=== PATIENT | male | born 1970 | race Caucasian/White ===

== ENCOUNTER 2019-12-15 17:12 | Emergency (ER) | payer BC, SELFPAY ==
[2019-12-15] VITALS (14 sets, daily range): BP systolic 124–147; BP diastolic 75–124; PULSE 89–107; RESP 16–37; TEMP 36.2; O2SAT 98–100
--- NOTE | 2019-12-15 17:15 | DI.CT_ITS ---
EXAM: CT HEAD CERVICAL SPINE WO CLINICAL HISTORY: fall off ladder. TECHNIQUE: Imaging Protocol: Axial computed tomography images with coronal and sagittal reformatted images were created and reviewed COMPARISON: No exams were available for comparison FINDINGS: There is dental artifact. CT Head: Ventricles and Extra axial spaces: Normal in size and morphology for the patient's age. Hemorrhage: None. Cerebral parenchyma: Normal. Midline shift: None. Brainstem/Cerebellum: Normal. Calvarium: Normal. Visualized Paranasal sinuses/Mastoids: Mucosal thickening is seen in the all of the paranasal sinuses bilaterally. No air fluid levels are present. The mastoid air cells are clear. Soft Tissues: Unremarkable. CT Cervical Spine: Bones: No acute fracture or subluxation. Soft Tissues: Unremarkable. Lung Apices: Clear. IMPRESSION: 1. No acute intracranial process. 2. No acute fracture or subluxation in the cervical spine. RADIATION DOSE DELIVERED: 1,630.99mGy.cm Total DLP DATA REPOSITORY: All CT scans at this facility are submitted to the National Radiology Data Registry (NRDR) Dose Index Registry (DIR) with the [employer] (ACR). RADIATION OPTIMIZATION: All CT scans at this facility use at least one of these dose optimization te chniques: automated exposure control; mA and/or kV adjustment per patient size (includes targeted exa ms where dose is matched to clinical indication); or iterative reconstruction.
--- NOTE | 2019-12-15 17:15 | DI.CT_ITS ---
EXAM: CT UPPER EXTREMITY RT WO CLINICAL HISTORY: pain s/p fall, open wound. TECHNIQUE: Imaging Protocol: Axial computed tomography images with coronal and sagittal reformatted images were created and reviewed. COMPARISON: No exams were available for comparison FINDINGS: Bones: There is a comminuted impacted fracture of the surgical neck of the right humerus. The fract ure extends to involve the inferior aspect of the humeral head and the greater tuberosity. The humer al head is seated within the glenoid fossa. There is also a comminuted intra-articular fracture of t he distal humerus. Air is seen within the elbow joint. Subcutaneous air and soft tissue swelling is seen around the elbow. There may also be some deformity of the radial head and a nondisplaced fract ure should be considered. No other fracture is appreciated. No lytic or sclerotic lesions are ident ified. Soft Tissues: Soft tissue swelling around the shoulder and elbow. IMPRESSION: 1. Comminuted impacted fracture of the surgical neck of the right humerus with extension into the hum eral head and the greater tuberosity. 2. Comminuted distal humeral fracture with intra-articular extension. There is air seen in the subcu taneous tissues around the elbow and within the elbow joint. 3. Question of a nondisplaced radial head fracture. RADIATION DOSE DELIVERED: 182.89mGy.cm Total DLP 182.89mGy.cm Total DLP DATA REPOSITORY: All CT scans at this facility are submitted to the National Radiology Data Registry (NRDR) Dose Index Registry (DIR) with the [employer] (ACR). RADIATION OPTIMIZATION: All CT scans at this facility use at least one of these dose optimization te chniques: automated exposure control; mA and/or kV adjustment per patient size (includes targeted exa ms where dose is matched to clinical indication); or iterative reconstruction.
--- NOTE | 2019-12-15 17:15 | DI.CT_ITS ---
EXAM: CT CHEST/ABD/PEL W CLINICAL HISTORY: TECHNIQUE: Imaging Protocol: Axial computed tomography images with coronal and sagittal reformatted images were created and reviewed CONTRAST MATERIAL: Intravenous: Omnipaque 350 Contrast volume:100 mL Oral: No COMPARISON: CT CT THORACIC LUMBAR SPINE REC from 12/15/2019 FINDINGS: The examination is limited due to patient motion artifact. CHEST: Tracheobronchial tree: Patent where visualized. Mediastinum and Giselle: No dominant adenopathy or fluid collection. Pulmonary parenchyma: No consolidation or dominant measurable mass. No architectural distortion. Ther e is a 2 mm noncalcified pulmonary nodule in the right lower lobe laterally. Pleura: No effusion or pneumothorax. Heart: The heart is not dilated. Mild coronary artery calcification. No pericardial effusion. Aorta: Thoracic aorta non-dilated. Lymph nodes: Within normal limits. Bones:There is a comminuted impacted fracture of the proximal right humerus. Please refer to the CT scan of the upper extremity for complete details. Soft tissues: Unremarkable. ABDOMEN: Liver: Normal density. No measurable mass. Portal, Superior Mesenteric, and Splenic Veins: Unremarkable. Gallbladder and Biliary Tract: No radiodense calculus or dilation. Pancreas: Normal density, no abnormal calcifications or inflammatory process. Spleen: Normal. Adrenals: No masses seen. Kidneys: Normal size, contour and axis. Nonobstructing 2 mm stone in the superior pole of the left ki dney. No masses seen. Abdominal Aorta: Abdominal portion non-dilated. Mild atherosclerosis. Bowel: No obstruction or bowel wall thickening. Appendix is unremarkable. There is a small amount of fluid seen within the small bowel. Peritoneal Cavity: No ascites, collection or mesenteric inflammatory response. Lymph Nodes: Within normal limits. Bones: There is a nondisplaced fracture of the lateral aspect of the right superior pubic ramus. The re is a nondisplaced fracture involving the right sacral ala with extension into the right sacroiliac joint. There is a minimally displaced fracture involving the right L5 transverse process Soft Tissues: Unremarkable. PELVIS: Bladder: Symmetric distention, no gross wall thickening. Reproductive Organs: Unremarkable as visualized. Lymph Nodes: Within normal limits. Bones: Please see above. IMPRESSION: 1. Nondisplaced fracture involving the lateral aspect of the right superior pubic ramus. Nondisplace d fracture involving the right sacral ala with extension into the right SI joint. Minimally displace d fracture of the right L5 transverse process. 2. Small amount of fluid within the small bowel which can be a normal variant. Mild developing small -bowel ileus may be present. 3. Comminuted impacted fracture of the surgical neck of right humerus. 4. No acute pulmonary process. RADIATION DOSE DELIVERED: 1,646.06mGy.cm Total DLP DATA REPOSITORY: All CT scans at this facility are submitted to the National Radiology Data Registry (NRDR) Dose Index Registry (DIR) with the [employer] (ACR). RADIATION OPTIMIZATION: All CT scans at this facility use at least one of these dose optimization te chniques: automated exposure control; mA and/or kV adjustment per patient size (includes targeted exa ms where dose is matched to clinical indication); or iterative reconstruction.
[2019-12-15] MEDS: fentaNYL 100 MCG/2 ML VIAL (17:20)
--- NOTE | 2019-12-15 17:22 | ED.GENADUL_ITS ---
Discharge Plan Disposition Patient Disposition: [facility] Condition: Serious Discharge Details Clinical Impression: Open fracture of right elbow, Blunt head trauma, Blunt trauma of multiple sites of trunk Primary Care Provider: Michelle Layton ED Provider: Eduin Solorio Home Meds and New Rx's Prescriptions: No Action atorvastatin 40 mg Tablet 40 mg PO QHS RF: 0 lisinopril 20 mg Tablet 20 mg PO DAILY RF: 0 metoprolol succinate 25 mg Capsule,Sprinkle,Er 24hr 25 mg PO DAILY RF: 0 Medical Decision Making 49 yo male with hx of htn comes in with chief complaint of right elbow pain s/p fall 8-10 feet off ladder, denies loc. Biggest complaint of pain is in the right elbow with swelling and limited rom and has a 1cm laceration over the olecranon, suspect he has an open fracture. He has soft abdomen with minimal tenderness in mid left abdomen and left lateral chest tenderness without palpable defects. [facility] mechanism will obtain ct of the head, c spine, chest/abd/pelvis and also given pain with any rom of the elbow CT of the elbow and monitor. No midline spine tenderness imaging on my read shows elbow fx and proximal humerus fx. Awaiting vrad read. He still has intact distal sensation and pulsese, still has quite a bit of pain, muscles feel soft but concern for possible compartment syndrome given the pain. Spoke with Dr. bedoya who doesn't feel this can be managed here and requires tertiary care ct confirms proximal humerus, elbow fx, l5 and sacral ala and ?small bowel injury but no tenderness presently. Patient still in pain in elbow but intactneurovascular exam Spoke with [facility] Dr. Dye who accepts for transfer to trauma service. Pt remains HD stable Differential Diagnosis Differential Diagnosis: fracture, tbi, c spine injury Imaging Data Radiologic Study: Attestation: I personally reviewed and interpreted this imaging study as follows: Imaging: CT Scan Radiologist's impression: negative ct head and c spine Radiologic Study #2: Attestation: I personally reviewed and interpreted this imaging study as follows: Imaging: CT Scan Radiologist's impression: IMPRESSION: 1. There is a slightly comminuted fracture of the proximal surgical neck of the right humerus. 2. No CT evidence of acute vascular or visceral injury in the chest or upper abdomen. Both lungs are well-aerated with no pneumothorax. ADEN HOLLIDAY Preliminary Radiology Report Page 2 of 3 3. Mild chronic degenerative vertebral body endplate osteophytic disease is seen in the mid to lower thoracic spine. IMPRESSION: 1. There are acute fractures of the right transverse process of L5 and the right sacral ala present, seen on images 89 through 101 of series 4. 2. There is a moderate amount of fluid present within the small bowel, which can be a normal variant finding although a mild developing posttraumatic small-bowel ileus may be present. ADEN HOLLIDAY Preliminary Radiology Report [employer] (QA) DISCREPANCY? If there is a discrepancy between the preliminary and final interpretation, please notify [email or web address] via [email or web address]. If you do not have access to our QA portal, call our QA team at [phone] CONFIDENTIALITY STATEMENT This report is intended only for the use of the referring physician, and only in accordance with law, If you received this in error, call [phone] Page 3 [address] evidence of acute vascular or visceral injury in the abdomen or pelvis Lab Data Lab results reviewed: Yes I reviewed the patient's lab results. HPI General Mode of arrival: EMS . Date/Time Provider Initiated Documentation: 12/15/19 17:19 . Limitations to Documentation: no limitations . Information obtained by: patient . History of Present Illness 49 year old M presents to the emergency department with the chief complaint of fall off ladder right elbow pain, No relieving factors improve symptom(s), No exacerbating factors reported . Patient did receive the following treatments prior to arrival, none Related Data Home Medications Medication Instructions Recorded Confirmed atorvastatin 40 mg PO QHS 12/15/19 12/15/19 lisinopril 20 mg PO DAILY 12/15/19 12/15/19 metoprolol succinate 25 mg PO DAILY 12/15/19 12/15/19 Allergies Allergy/AdvReac Type Severity Reaction Status Date / Time No Known Allergies Allergy Unverified 12/15/19 17:15 General Stated Complaint: Trauma PRITESH: 2 Review of Systems All systems reviewed & are unremarkable except as noted in HPI and below Constitutional Constitutional: Denies chills, Denies fever(s) and Denies weakness Cardiovascular Cardiovascular: Denies dyspnea Respiratory Respiratory: Denies cough and Denies dyspnea Gastrointestinal Gastrointestinal: Denies nausea and Denies vomiting Musculoskeletal Musculoskeletal: Denies joint swelling Neurologic Neurologic: Denies weakness Psychiatric Psychiatric: Denies depression PFSH Social History Smoking/Tobacco Use Status: Former Tobacco Use Smoking risk assessment performed?: Yes Alcohol Intake: current Alcohol Intake frequency: a few times a week Alcohol type: hard liquor Drug use: Never Substance use type: does not use Do you feel safe at home: Yes Do you feel safe in your relationship?: Yes Exam Const General: other (in pain) Orientation: alert HENMT Head: normal to inspection Ears: external ears normal General nose exam: external nose normal Mouth: moist mucous membranes Eyes General: appearance normal, both eyes and all related structures Neck Neck: normal visual inspection Resp Effort & Inspection: normal respiratory effort and able to speak in complete sentences Cardio Rate: regular rate Skin General skin exam: no rashes or lesions noted Neuro General: patient alert and patient oriented x3 Extrem General: capillary refill normal Psych Mental Status: mental status grossly normal Course Vital Signs Vital signs: Vital Signs Temperature 36.2 C L 12/15/19 17:15 Pulse 96 H 12/15/19 17:15 Respiratory Rate 37 H 12/15/19 17:15 Blood Pressure 140/91 H 12/15/19 17:15 Pulse Oximetry 100 12/15/19 17:15 Temperature 36.2 C L 12/15/19 17:15 Temperature Source Temporal Artery Scan 12/15/19 17:15 Pulse 96 H 12/15/19 17:15 Respiratory Rate 37 H 12/15/19 17:15 Blood Pressure 140/91 H 12/15/19 17:15 Blood Pressure Position Supine 12/15/19 17:15 Pulse Oximetry 100 12/15/19 17:15 Oxygen Delivery Method Room Air 12/15/19 17:15 Oxygen Flow Rate 0 12/15/19 17:15 Pain Level 10 12/15/19 17:15
[2019-12-15] MEDS: HYDROmorphone 2 MG/ML VIAL 1 MG IVP ×2 (17:33→18:41)
[2019-12-15 17:34] LABS: Abs Immature Grans 0.29 10^3/uL (0.0-0.06); Absolute Basophil Count 0.09 10^3/uL (0.0-0.2); Absolute Eosinophil Count 0.19 10^3/uL (0.0-0.7); Absolute Monocyte Count 1.47 10^3/uL (0.1-0.8); Absolute Neutrophil Count 6.03 10^3/uL (1.2-6.7); Basophils % 0.8; Eosinophils % 1.7; HCT 43.3 % (40.0-50.0); HGB 14.8 g/dL (13.5-17.5); Immature Grans % 2.6; Lymphocytes % 28.4; MCH 28.8 pg (27.0-33.0); MCHC 34.2 % (32.0-36.0); MCV 84.4 fL (80-95); MPV 10.9 fL (8.0-11.0); Neutrophils % 53.5; Nucleated RBC 0 %; Platelet Count 234 10^3/uL (130-400); RBC 5.13 10^6/uL (4.36-5.78); RDW 12.7 % (11.8-14.1); RDW-SD 39.2 fL; WBC 11.27 10^3/uL (4.4-10.8)
[2019-12-15 17:49] LABS: ALT 59 U/L (16-63); AST 38 U/L (15-37); Alkaline Phosphatase 103 U/L (46-116); Anion Gap 14.7 mmol/L (3-11); BUN 11 mg/dL (7-18); Bilirubin, Total 0.5 mg/dL (0.2-1.0); CO2 20.3 mmol/L (21.0-32.0); Chloride 101 mmol/L (98-107); ETHANOL BLOOD < 3.0 mg/dL (<3); Glucose 120 mg/dL (74-106); Potassium 3.3 mmol/L (3.5-5.1); Sodium 136 mmol/L (136-145); Total Protein 7.2 g/dL (6.4-8.2)
[2019-12-15 17:50] LABS: PTT Activated 20.8 sec (21.0-27.5); Prothrombin Time 10.4 sec (9.3-11.0)
--- NOTE | 2019-12-15 18:28 | DI.VRAD_ITS ---
PROCEDURE INFORMATION: Exam: CT Head Without Contrast Exam date and time: 12/15/2019 5:49 PM Age: 49 years old Clinical indication: Injury or trauma; Patient HX: Fall off ladder TECHNIQUE: Imaging protocol: Computed tomography of the head without contrast. COMPARISON: No relevant prior studies available. FINDINGS: Brain: Normal. No hemorrhage. Unremarkable white matter. No mass effect. Cerebral ventricles: No ventriculomegaly. Bones/joints: Unremarkable. No acute fracture. Paranasal sinuses: There is fluid within the sinuses, consistent with sinusitis. Mastoid air cells: Visualized mastoid air cells are well aerated. Soft tissues: Unremarkable. IMPRESSION: Negative for acute intracranial pathology. PROCEDURE INFORMATION: Exam: CT Cervical Spine Without Contrast Exam date and time: 12/15/2019 5:49 PM Age: 49 years old Clinical indication: Injury or trauma; Patient HX: Fall off ladder TECHNIQUE: Imaging protocol: Computed tomography images of the cervical spine without contrast. COMPARISON: No relevant prior studies available. FINDINGS: Bones/joints: No acute fracture. Normal alignment. Discs/Spinal canal/Neural foramina: No significant disc protrusion. No severe spinal canal stenosis. No significant neural foraminal narrowing. Soft tissues: Unremarkable. Lungs: Lung apices are normal. IMPRESSION: No acute findings. Dictated and Authenticated by: Bridger Quiroga MD. Ordering:CHENTE Denyn MD
[2019-12-15] MEDS: Omnipaque 350 MG/ML 100 ML BTL IJ (18:38)
[2019-12-15] MEDS: Normal Saline - Diluent 50 ML VIAL IV (18:38)
--- NOTE | 2019-12-15 18:45 | DI.VRAD_ITS ---
PROCEDURE INFORMATION: Exam: CT Chest With Contrast Exam date and time: 12/15/2019 5:55 PM Age: 49 years old Clinical indication: Injury or trauma; Patient HX: Fall off ladder TECHNIQUE: Imaging protocol: Computed tomography of the chest with intravenous contrast. COMPARISON: No relevant prior studies available. FINDINGS: Lungs: Unremarkable. No consolidation. No masses. Pleural space: Unremarkable. No pneumothorax. No pleural effusion. Heart: Unremarkable. No cardiomegaly. No pericardial effusion. Aorta: Unremarkable. No aortic aneurysm. Lymph nodes: Unremarkable. No enlarged lymph nodes. Bones/joints: There is a slightly comminuted fracture of the proximal surgical neck of the right humerus. Mild chronic degenerative vertebral body endplate osteophytic disease is seen in the mid to lower thoracic spine. Soft tissues: Unremarkable. IMPRESSION: 1. There is a slightly comminuted fracture of the proximal surgical neck of the right humerus. 2. No CT evidence of acute vascular or visceral injury in the chest or upper abdomen. Both lungs are well-aerated with no pneumothorax. 3. Mild chronic degenerative vertebral body endplate osteophytic disease is seen in the mid to lower thoracic spine. PROCEDURE INFORMATION: Exam: CT Abdomen And Pelvis With Contrast Exam date and time: 12/15/2019 5:55 PM Age: 49 years old Clinical indication: Injury or trauma; Patient HX: Fall off ladder TECHNIQUE: Imaging protocol: Computed tomography of the abdomen and pelvis with intravenous contrast. COMPARISON: No relevant prior studies available. FINDINGS: Liver: Normal. No mass. Gallbladder and bile ducts: Normal. No calcified stones. No ductal dilation. Pancreas: Normal. No ductal dilation. Spleen: Normal. No splenomegaly. Adrenal glands: Normal. No mass. Kidneys and ureters: Normal. No hydronephrosis. Stomach and bowel: There is a moderate amount of fluid present within the small bowel, which can be a normal variant finding although a mild developing posttraumatic small-bowel ileus may be present. No obstruction. No mucosal thickening. Appendix: No evidence of appendicitis. Intraperitoneal space: Unremarkable. No free air. No significant fluid collection. Vasculature: Unremarkable. No abdominal aortic aneurysm. Lymph nodes: Unremarkable. No enlarged lymph nodes. Urinary bladder: Unremarkable as visualized. Reproductive: Unremarkable as visualized. Bones/joints: There are acute fractures of the right transverse process of L5 and the right sacral ala present on images 89 through 101 of series 4. Soft tissues: Unremarkable. IMPRESSION: 1. There are acute fractures of the right transverse process of L5 and the right sacral ala present, seen on images 89 through 101 of series 4. 2. There is a moderate amount of fluid present within the small bowel, which can be a normal variant finding although a mild developing posttraumatic small-bowel ileus may be present. 3. No CT evidence of acute vascular or visceral injury in the abdomen or pelvis. Dictated and Authenticated by: Chucho Whelan MD. Ordering:CHENTE Denny MD
--- NOTE | 2019-12-15 18:54 | DI.VRAD_ITS ---
PROCEDURE INFORMATION: Exam: CT Right Upper Extremity Without Contrast Exam date and time: 12/15/2019 6:05 PM Age: 49 years old Clinical indication: Injury or trauma; Fall; Blunt trauma (contusions or hematomas); Arm, upper and arm, lower; Right; Injury details: Fell off ladder TECHNIQUE: Imaging protocol: CT of the Right upper extremity without intravenous contrast was performed. COMPARISON: No relevant prior studies available. FINDINGS: Bones/joints: There is a slightly comminuted probable three-part fracture of the proximal right humerus with fracture lines involving the surgical neck and greater tuberosity of the humerus. The proximal diaphysis of the humerus appears slightly impacted proximally into the humeral head. In addition there is a moderately comminuted distal supracondylar and intra-articular fracture of the humerus. The right clavicle and scapula appear normal. Soft tissues: Normal. IMPRESSION: 1. There is a slightly comminuted probable three-part fracture of the proximal right humerus with fracture lines involving the surgical neck and greater tuberosity of the humerus. The proximal diaphysis of the humerus appears slightly impacted proximally into the humeral head. 2. In addition there is a moderately comminuted distal supracondylar and intra-articular fracture of the humerus. 3. The right clavicle and scapula appear normal. Dictated and Authenticated by: Chucho Whelan MD. Ordering:CHENTE Denny MD
--- NOTE | 2019-12-15 19:17 | DI.CT_ITS ---
EXAM: CT THORACIC LUMBAR SPINE REC CLINICAL HISTORY: trauma, reconstructions please TECHNIQUE: CT reconstructions of the thoracic and lumbar spine were obtained. Sagittal and coronal reformatted images were evaluated on the Siemens workstation. COMPARISON: No exams were available for comparison FINDINGS: CT thoracic spine recons: There are mild degenerative changes seen in the thoracic spine. No acute fracture or subluxation in the thoracic spine is noted. There is normal alignment of the thoracic spine. The bones are normall y mineralized. CT lumbar spine recons: There is a mildly displaced fracture of the right transverse process of L5. No other acute fractures or subluxations are seen in the lumbar spine. The bones are normally mineralized. There is normal alignment of the lumbar spine. IMPRESSION: 1. No acute fracture or subluxation in the thoracic spine. 2. Mildly displaced right transverse process fracture of L5.
== END 2019-12-15 19:44 | disposition short-term general hospital (02) ==
PROVIDERS: Emergency Provider Emergency Medicine; PCP Nurse Practitioner Adult Health
DX: S42.401B Unspecified fracture of lower end of right humerus, initial encounter for open fracture (principal); S32.058A Other fracture of fifth lumbar vertebra, initial encounter for closed fracture; S32.110A Nondisplaced Zone I fracture of sacrum, initial encounter for closed fracture; S32.511A Fracture of superior rim of right pubis, initial encounter for closed fracture; S42.211A Unspecified displaced fracture of surgical neck of right humerus, initial encounter for closed fracture; S09.90XA Unspecified injury of head, initial encounter; W11.XXXA Fall on and from ladder, initial encounter
CPT/HCPCS: 36415; 74177; 80053; 86850; 86900; 86901; 90471; 96365; 96375; 96376; 99285; 70450; 71260; 72125; 73200; 80320; 85025; 85610; 85730; J0690; J3010; J3490

== ENCOUNTER 2023-11-15 14:00 | Outpatient (CLI) | payer BC, SELFPAY ==
--- NOTE | 2023-11-15 14:00 | RT.EKG_ITS ---
APPROVED REPORT Exam: Resting ECG Reason for Exam: baseline Patient Location: O HR:77 bpm ECG Measurements Heart Rate 77 AXIS LA 174 P 36 QRSd 106 QRS 7 QT 391 T 149 QTc 443 Conclusion Sinus rhythm...normal P axis, V-rate 50- 99 Probable left atrial enlargement...P >50mS, <-0.10mV V1 LVH with secondary repolarization abnormality...multi-LVH criteria, abnrm ST-T
== END 2023-11-15 14:01 | disposition home or self-care (01) ==
LOC: DI.CARD 14:00
PROVIDERS: PCP Nurse Practitioner Primary Care; Visit Provider Internal Medicine Cardiovascular Disease
DX: R01.1 Cardiac murmur, unspecified (principal)
CPT/HCPCS: 93010

== ENCOUNTER 2024-03-26 07:34 | Inpatient (IN) | payer BC, SELFPAY ==
[2024-03-26] VITALS (57 sets, daily range): BP systolic 92–127; BP diastolic 53–86; PULSE 61–91; RESP 10–22; TEMP 36.5–37.1; O2SAT 95–100
--- NOTE | 2024-03-26 07:30 | RT.EKG_ITS ---
APPROVED REPORT Exam: Resting ECG Reason for Exam: palpitations Patient Location: E HR:82 bpm ECG Measurements Heart Rate 82 AXIS FL 170 P 37 QRSd 103 QRS 1 QT 376 T 150 QTc 443 Conclusion Sinus rhythm...normal P axis, V-rate 60- 99 Atrial premature complexes...SV complexes w/ short R-R intvls Left atrial enlargement...P, P'>60mS, <-0.15mV V1 LVH with secondary repolarization abnormality...multi-LVH criteria, abnrm ST-T ST elevation secondary to LVH...Multiple VCG criteria Physician: unchanged from prior ekg
--- NOTE | 2024-03-26 07:45 | DI.RAD_ITS ---
Exam(s) XR PORTABLE CHEST AP EXAM: XR PORTABLE CHEST AP CLINICAL HISTORY: central chest discomfort TECHNIQUE: 2D digital imaging was performed of the chest. One image was obtained. An AP view was ob tained. COMPARISON: CT CT CHEST/ABD/PEL W from 12/15/2019 FINDINGS: MEDIASTINUM: Normal. HEART: Normal. PULMONARY VASCULATURE: Normal. LUNGS: Clear. PLEURAL SPACE: No pleural effusion or pneumothorax. BONE:Within normal limits for the patient's age. OTHER FINDINGS:Normal. IMPRESSION: No acute pulmonary findings. DATA REPOSITORY: RADIATION DOSE DELIVERED:
--- NOTE | 2024-03-26 08:06 | W.ED.GENAD ---
Discharge Plan Disposition Patient Disposition: Admit to [facility] Condition: Stable Discharge Details Chief Complaint: Palpitatns Clinical Impression: NSTEMI (non-ST elevated myocardial infarction), Hypertrophic cardiomyopathy Admit Date/Time: 03/26/24 11:27 Admit Provider: Wallace Omer Attending Provider: aWllace Omer Primary Care Provider: JOSESITO OSUNA ED Provider: Camron Alexander HPI General Date/Time Provider Initiated Documentation: 03/26/24 07:36. HPI Narrative: 53-year-old male with a past medical history of hypertrophic nonobstructive cardiomyopathy, high cholesterol, hypertension, currently on metoprolol, presents today for evaluation of palpitations. Patient states that he has a history of an odd chest sensation that usually occurs with activity, however last night he had the sensation that began while at rest. It continued throughout the night into today. It was slightly worsened with activity. He denies any chest pain, heaviness, or tearing or ripping sensation. He states that it just feels like an odd sensation in his chest. He has been dealing with an upper respiratory like infection for the last few weeks. He denies fever or chills. Denies PE risk factors such as recent long car rides, immobilization, recent surgery, prior history of DVT or PE, family history of PE or DVT, morbid obesity, exogenous estrogen and smoking, hemoptysis, history of cancer. He did have a single glass of wine last night which is not overly atypical. He denies any other complaints at this time. Related Data Home Medications ?Medication ?Instructions ?Recorded ?Confirmed atorvastatin 40 mg tablet 40 mg PO QHS 12/15/19 03/26/24 lisinopril 20 mg tablet 20 mg PO DAILY 12/15/19 03/26/24 acetaminophen 325 mg capsule 325 mg PO ONCE PRN 10/04/22 03/26/24 metoprolol succinate 25 mg 25 mg PO DAILY 03/26/24 03/26/24 tablet,extended release 24 hr Allergies Allergy/AdvReac Type Severity Reaction Status Date / Time No Known Allergies Allergy Unverified 03/26/24 07:42 General Stated Complaint: Palpitatns PRITESH: 2 Exam Narrative Exam Narrative: 1.Const: Well-nourished, Well-developed, appearing stated age 2.Eyes: PERRL, no conjunctival injection, and symmetrical lids. 3.ENT: Atraumatic external nose and ears. Moist MM. Neck: Symmetric, trachea midline, No thyromegaly. 4.CVS: +S1/S2, holosystolic murmur present peripheral pulses 2+ and equal in all extremities. Brisk capillary refill in all extremities. 5.RESP: Unlabored respiratory effort. Clear to auscultation bilaterally. No wheezes rales or rhonchi 6.GI: Soft, Nontender/Nondistended, No hepatosplenomegaly. No guarding or rebound. 7.MSK: Normocephalic/Atraumatic, Extremities w/o deformity or ttp No cyanosis or clubbing, Normal movement of all extremities. No swelling in lower extremities or calf tenderness. 8.Skin: Warm, Dry. No rashes or lesions. 9.Neuro: rehab liaison II-XII grossly intact. Sensation grossly intact, no focal neurologic deficits. 10.Psych: (AAO) x3. Appropriate mood and affect Course Vital Signs Vital signs: Vital Signs Pulse 89 03/26/24 07:37 Respiratory Rate 15 03/26/24 07:37 Pulse Oximetry 96 03/26/24 07:37 Pulse 87 03/26/24 07:50 Pulse 85 03/26/24 07:50 Respiratory Rate 17 03/26/24 07:50 Blood Pressure 98/53 L 03/26/24 07:47 Blood Pressure Mean 67 03/26/24 07:47 Pulse Oximetry 99 03/26/24 07:50 Oxygen Delivery Method Room Air 03/26/24 07:37 Oxygen Flow Rate 0 03/26/24 07:37 Pain Level 0 03/26/24 07:37 Medical Decision Making 53-year-old male with a past medical history of hypertrophic nonobstructive cardiomyopathy, high cholesterol, hypertension, currently on metoprolol, presents today for evaluation of palpitations. Patient states that he has a history of an odd chest sensation that usually occurs with activity, however last night he had the sensation that began while at rest. It continued throughout the night into today. It was slightly worsened with activity. He denies any chest pain, heaviness, or tearing or ripping sensation. He states that it just feels like an odd sensation in his chest. He has been dealing with an upper respiratory like infection for the last few weeks. He denies fever or chills. Denies PE risk factors such as recent long car rides, immobilization, recent surgery, prior history of DVT or PE, family history of PE or DVT, morbid obesity, exogenous estrogen and smoking, hemoptysis, history of cancer. He did have a single glass of wine last night which is not overly atypical. He denies any other complaints at this time. Exam demonstrates a stable appearing male, EKG is certainly abnormal but unchanged. Bedside ultrasound demonstrates notable cardiac hypertrophy, specifically at the apex. No pericardial effusion. Pulses equal throughout. Differential includes myocarditis from viral etiology, will test for COVID flu and RSV. Unstable angina is certainly on the differential as well but is complicated by his history of hypertrophic cardiomyopathy. PE less likely. Pneumonia or mass is on the differential but less likely. Electrolyte abnormality and dysrhythmia of concern. Will evaluate for these etiologies, monitor closely and reassess. 9:52 AM Patient's initial troponin was 287, repeat 1 hour troponin is 333, with a gradual increase. Patient still states that he feels well without any pain at this time. He states that his heart still feels a little off but no other abnormalities. D-dimer negative. Chest x-ray negative for acute process. proBNP is elevated at 1700, but no prior for comparison. Thyroid function normal suggesting no evidence of hyperthyroidism for dysrhythmias. Will reach out to [facility] cardiology for further discussion. Will give full dose aspirin. 10:30 AM Discussed the case with Radha the nurse practitioner of cardiology at [facility]. They do recommend heparinization, and continuing his metoprolol and atorvastatin. They do recommend further cardiac evaluation and cardiac catheterization, but they do not currently have bed availability. They will have room tomorrow, and will recommend transfer then. Patient is to be admitted under Dr. Segovia at time of transfer. In the meantime we will keep the patient here, patient will be admitted and monitored. Discussed the case with hospitalist Dr. Omer, he agrees with the assessment and plan. I have extensively reviewed the treatment plan with the patient. I have addressed all patient concerns at this time. I have also discussed the plan with the admitting physician and they agree with the current assessment and plan and have agreed to assume responsibility for the patient. All parties demonstrate verbal understanding and agreement with our assessment and plan at this time. The documentation in this chart was dictated using [employer] dictation software. Please excuse any dictation errors. FINDINGS: MEDIASTINUM: Normal. HEART: Normal. PULMONARY VASCULATURE: Normal. LUNGS: Clear. PLEURAL SPACE: No pleural effusion or pneumothorax. BONE:Within normal limits for the patient's age. OTHER FINDINGS:Normal. IMPRESSION: No acute pulmonary findings. Quality:SDOH Health Related Social Needs: Health related social needs feeling lonely/isolated (Z60.8) PFSH All Active Problems (Updated 03/26/24 @ 16:33 by Camron Alexander DO) Hypertrophic cardiomyopathy (Acute) NSTEMI (non-ST elevated myocardial infarction) (Acute) Otorrhea, right ear (Acute) Medical History Hypertension Hyperlipidemia Overweight Murmur, cardiac Vitamin D deficiency Unspecified fracture of sacrum, subsequent encounter for fracture with routine healing Burst fracture of cervical vertebra with routine healing 2-part nondisplaced fracture of surgical neck of right humerus, sequela Fatigue Neuropathy Hypertrophic nonobstructive cardiomyopathy Diverticulosis of sigmoid colon Perforation of right tympanic membrane Family History Mother Dementia Cancer Skin cancer (melanoma) Father Heart disease Brother TIA (transient ischemic attack) Paternal Grandfather Heart attack Paternal Grandmother Heart attack Social History Smoking/Tobacco Use Status: Former Tobacco Use Smoking risk assessment performed?: Yes Alcohol Intake: current Alcohol Intake frequency: a few times a month Alcohol type: hard liquor Drug use: Never Substance use type: does not use Housing: house Do you feel safe at home: Yes Do you feel safe in your relationship?: Yes 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 [employer] Have you Been Recently Intoxicated or Drunk Within the Last 30 days?: No Have you Ever Experienced Previous Episodes of Alcohol Withdrawal?: No Have you ever Experienced Withdrawal Seizures?: No Have you ever Experienced Delirium Tremens(DT)s?: No Have you ever undergone Alcohol Rehabilitation Treatment (i.e, inpt ot outpatient treatment programs)?: No Have you ever Experienced Blackouts?: No Have you ever Combined Alcohol with other Downers within the last 90 days?: No Have you ever Combined Alcohol with any other Substance of Abuse during the last 90 days?: No Positive Blood Alcohol level on Presentation? [PCS.BAL]: No Evidence of Increased Autonomic Activity (i.e. HR>120, tremor, sweating, agitation, nausea)?: No Result: 0 POCUS Exam (ED) Limited Cardiac Exam DATE OF EXAM: 03/26/24 TIME OF EXAM: 09:29 PROVIDER THAT PERFORMED THE STUDY: Camron Alexander IS THIS A REPEAT EXAM DURING THIS ENCOUNTER: no REASON FOR EXAM: Chest pain VISUALIZED STRUCTURES: Left ventricle and Interventricular septum VIEW OBTAINED: Parasternal long-axis and Parasternal short-axis PERTINENT FINDINGS/IMPRESSION: LV dysfunction and Other (Left ventricular hypertrophy) Exam complete
[2024-03-26 08:07] LABS: Abs Immature Grans 0.03 10^3/uL (0.0-0.06); Absolute Basophil Count 0.05 10^3/uL (0.0-0.2); Absolute Eosinophil Count 0.14 10^3/uL (0.0-0.7); Absolute Lymphocyte Count 1.44 10^3/uL (1.2-3.4); Absolute Monocyte Count 0.71 10^3/uL (0.1-0.8); Absolute Neutrophil Count 4.49 10^3/uL (1.2-6.7); Basophils % 0.7 %; HCT 46.3 % (40.0-50.0); HGB 15.8 g/dL (13.5-17.5); Immature Grans % 0.4 %; MCH 29.3 pg (27.0-33.0); MCHC 34.1 % (32.0-36.0); MCV 86 fL (80-95); MPV 10.6 fL (8.0-11.0); Monocytes % 10.3 %; Neutrophils % 65.6 %; Platelet Count 212 10^3/uL (130-400); RDW 12.7 % (11.8-14.1); RDW-SD 39.4 fL; WBC 6.86 10^3/uL (4.4-10.8)
[2024-03-26 08:18] LABS: INR 1.1 (0.9-1.1); PTT Activated 27.3 sec (20.6-30.2); Prothrombin Time 10.9 sec (9.1-11.1)
[2024-03-26 08:28] LABS: ALT 52 U/L (16-63); AST 23 U/L (15-37); Alkaline Phosphatase 89 U/L (46-116); Anion Gap 8.6 mmol/L (3-11); BUN 15 mg/dL (7-18); Bilirubin, Total 0.77 mg/dL (0.2-1.0); CO2 25.4 mmol/L (21.0-32.0); CREATININE 0.9 mg/dL (0.70-1.30); Calcium 9.6 mg/dL (8.5-10.1); Chloride 101 mmol/L (98-107); Glucose 144 mg/dL (74-106); NT-proBNP 1711 pg/mL (<300); Potassium 4.1 mmol/L (3.5-5.1); Sodium 135 mmol/L (136-145); TSH (W/Ref FT4) 1.68 uIU/mL (0.36-3.74); Total Protein 7.3 g/dL (6.4-8.2)
[2024-03-26 08:29] LABS: Troponin I 287 ng/L (<or=76)
[2024-03-26 08:53] LABS: D-Dimer 245 ng/mlFEU (<500)
[2024-03-26 09:16] LABS: Troponin I 333 ng/L (<or=76)
[2024-03-26] MEDS: Aspirin 81 MG CHEW 324 MG CH (10:15)
[2024-03-26] MEDS: Heparin in 0.45% NaCl 25,000 UNIT/250 ML BAG 10 UNIT IVINF (10:21)
[2024-03-26 10:56] LABS: COVID-19 PCR Negative (Negative); Influenza A PCR Negative (Negative); Influenza B PCR Negative (Negative); RSV PCR Negative (Negative)
[2024-03-26 10:57] LABS: Source Nasopharynx
--- NOTE | 2024-03-26 11:27 | W.PM.HP.N ---
Date of service: 03/26/24 Time of Service: 12:45 Assessment and Plan Assessment and plan (1) NSTEMI (non-ST elevated myocardial infarction): Status: Acute Assessment and plan: - Patient without chest pain or EKG changes but was noted to have elevated troponin initially 287 increased to 333 -Was given full dose aspirin and started on heparin drip -Has been accepted by [facility] cardiology transfer for cardiac catheterization in the setting of the NSTEMI -Patient is not had any chest pain, will will give sublingual nitro if chest pain develops -Patient currently n.p.o., will allow to eat later this afternoon if it does not appear he is being transferred and will again make n.p.o. at midnight (2) Hypertrophic cardiomyopathy: Status: Acute Assessment and plan: - History of, and again seen on POCUS done in emergency department (3) Hypertension: Assessment and plan: - Continue home metoprolol succinate -Hold lisinopril (4) Hyperlipidemia: Assessment and plan: - Continue statin History of Present Illness History of Present Illness Chief Complaint: Palpitations Narrative: 53-year-old gentleman with past medical history of hypertension, hyperlipidemia and hypertrophic nonobstructive cardiomyopathy who presents emergency department complaints of palpitations. Patient states that he usually has intermittent episodes of an odd sensation in his chest with activity, however that beginning last night that sensation was present at rest and continued throughout the night until earlier this morning. He states that it was slightly worse with activity but he denies calling chest pain, heaviness, or stating any tearing, ripping sensation, headache, lightheadedness, dizziness, nausea or vomiting. In the emergency department the patient was noted as having normal vital signs and a normal physical exam. Additionally, his EKG was unchanged but his initial troponin was elevated to 287 and increased to 333. Emergency room physician discussed with [facility] cardiology who recommended full dose aspirin, continuing metoprolol and atorvastatin, and initiating heparin drip. Additionally they accepted the patient for transfer for cardiac catheterization in the setting of an NSTEMI. At which time emergency room physician paged hospitalist for admission for patient with NSTEMI. Review of Systems All systems reviewed & are unremarkable except as noted in HPI and below PFSH All Active Problems (Updated 03/26/24 @ 12:49 by Wallace Omer MD) Hypertrophic cardiomyopathy (Acute) NSTEMI (non-ST elevated myocardial infarction) (Acute) Otorrhea, right ear (Acute) Medical History Hypertension Hyperlipidemia Overweight Murmur, cardiac Vitamin D deficiency Unspecified fracture of sacrum, subsequent encounter for fracture with routine healing Burst fracture of cervical vertebra with routine healing 2-part nondisplaced fracture of surgical neck of right humerus, sequela Fatigue Neuropathy Hypertrophic nonobstructive cardiomyopathy Diverticulosis of sigmoid colon Perforation of right tympanic membrane Family History Mother Dementia Cancer Skin cancer (melanoma) Father Heart disease Brother TIA (transient ischemic attack) Paternal Grandfather Heart attack Paternal Grandmother Heart attack Social History Smoking/Tobacco Use Status: Former Tobacco Use Smoking risk assessment performed?: Yes Alcohol Intake: current Alcohol Intake frequency: a few times a month Alcohol type: hard liquor Drug use: Never Substance use type: does not use Housing: house Do you feel safe at home: Yes Do you feel safe in your relationship?: Yes Additional Social history: works from [employer] work Meds Allergies and Home Medications Allergies Allergy/AdvReac Type Severity Reaction Status Date / Time No Known Allergies Allergy Unverified 03/26/24 07:42 Home Medications ?Medication ?Instructions ?Recorded ?Confirmed ?Type atorvastatin 40 mg tablet 40 mg PO QHS 12/15/19 03/26/24 History lisinopril 20 mg tablet 20 mg PO DAILY 12/15/19 03/26/24 History metoprolol succinate 25 mg capsule 25 mg PO DAILY 12/15/19 03/26/24 History sprinkle, ext. release 24 hr acetaminophen 325 mg capsule 325 mg PO ONCE PRN 10/04/22 03/26/24 History Exam Narrative Exam Narrative: Well-appearing gentleman laying in bed in no acute distress, ANO x 4, heart regular rhythm with a audible holosystolic murmur, lungs clear to auscultation bilaterally, abdomen soft, nontender, nondistended Results Labs 03/26/24 07:55 03/26/24 07:55 Labs: Laboratory Results - last 24 hr 03/26/24 03/26/24 03/26/24 07:55 08:05 08:52 WBC 6.86 RBC 5.40 Hgb 15.8 Hct 46.3 MCV 86 MCH 29.3 MCHC 34.1 RDW 12.7 Plt Count 212 MPV 10.6 Immature Gran % 0.4 Neutrophils % 65.6 Lymphocytes % 21.0 Monocytes % 10.3 Eosinophils % 2.0 Basophils % 0.7 Nucleated RBC % 0.0 Absolute Neutrophils 4.49 Absolute Lymphocytes 1.44 Absolute Monocytes 0.71 Absolute Eosinophils 0.14 Absolute Basophils 0.05 PT 10.9 INR 1.1 APTT 27.3 D-Dimer 245 Sodium 135 L Potassium 4.1 Chloride 101 Carbon Dioxide 25.4 Anion Gap 8.6 BUN 15 Creatinine 0.9 Est GFR (CKD-EPI 2020) 103.40 Glucose 144 H Calcium 9.6 Total Bilirubin 0.77 AST 23 ALT 52 Alkaline Phosphatase 89 Troponin I 287 H* 333 H* NT-Pro-B Natriuret Pep 1711 H Total Protein 7.3 Albumin 4.0 TSH 1.68 COVID-19 Source Nasopharynx SARS-CoV-2 (PCR) Negative Influenza Type A (PCR) Negative Influenza Type B (PCR) Negative RSV (PCR) Negative Last Vital Signs Temp 98.2 F 03/26/24 11:20 Pulse 80 03/26/24 11:01 Resp 18 03/26/24 11:01 BP 101/67 03/26/24 11:00 Pulse Ox 97 03/26/24 11:01 PAWSS Have you Been Recently Intoxicated or Drunk Within the Last 30 days?: No Have you Ever Experienced Previous Episodes of Alcohol Withdrawal?: No Have you ever Experienced Withdrawal Seizures?: No Have you ever Experienced Delirium Tremens(DT)s?: No Have you ever undergone Alcohol Rehabilitation Treatment (i.e, inpt ot outpatient treatment programs)?: No Have you ever Experienced Blackouts?: No Have you ever Combined Alcohol with other Downers within the last 90 days?: No Have you ever Combined Alcohol with any other Substance of Abuse during the last 90 days?: No Positive Blood Alcohol level on Presentation? [PCS.BAL]: No Evidence of Increased Autonomic Activity (i.e. HR>120, tremor, sweating, agitation, nausea)?: No Result: 0 Time Spent Time spent with Patient: >75 minutes Time was spent: preparing to see the patient(eg.review tests), obtaining and/or reviewing separately otained hiistory, ordering medications,tests, procedures, referring, communicating with other health critical care specialist, indepentently interpreting results, counseling the patient and care coordination
[2024-03-26 11:32] LABS: Troponin I 391 ng/L (<or=76)
--- NOTE | 2024-03-26 12:58 | W.PC.ACHO ---
Registration Status: Primary Language: Preferred Language: ED Information & Data Chief Complaint Sarah 03/26/24 08:09 Triage Note last evening felt like his 03/26/24 07:37 heart was straining to beat . has had a cough/cold for past couple of weeks. difficulty sleeping last night. denies pain. hx hypertrophic cardiomyopathy. Medical / Surgical History (Last Reviewed 11/15/23 @ 14:07 by Phyllis Contreras MD) Hypertension Hyperlipidemia Overweight Murmur, cardiac Vitamin D deficiency Unspecified fracture of sacrum, subsequent encounter for fracture with routine healing Burst fracture of cervical vertebra with routine healing 2-part nondisplaced fracture of surgical neck of right humerus, sequela Fatigue Neuropathy Hypertrophic nonobstructive cardiomyopathy Diverticulosis of sigmoid colon Perforation of right tympanic membrane Most Recent Vital Signs Temperature 36.8 C 03/26/24 11:20 Temperature Source Temporal Artery Scan 03/26/24 11:20 Pulse 61 03/26/24 12:20 Pulse 65 03/26/24 12:20 Respiratory Rate 18 03/26/24 12:20 Blood Pressure 98/68 L 03/26/24 12:15 Blood Pressure Mean 75 03/26/24 12:15 Pulse Oximetry 97 03/26/24 12:20 Oxygen Delivery Method Room Air 03/26/24 10:33 Oxygen Flow Rate 0 03/26/24 10:33 Pain Level 0 03/26/24 11:20 Allergies No Known Allergies Allergy (Unverified 03/26/24 07:42) Active Medications Generic Name Dose Route Start Last Admin Trade Name Freq PRN Reason Stop Dose Admin Heparin Sodium/Sodium Chloride 25,000 unit in 250 mls @ 10 mls/hr 03/26/24 10:30 03/26/24 10:21 IVINF 1,000 units/hr INFUSION BENTLEY 10 mls/hr Administration Protocol 1,000 UNITS/HR IV IV Catheter Type [Left Saline Lock Antecubital] IV Catheter Gauge [Left 20 Antecubital] Diagnostics 03/26/24 03/26/24 03/26/24 Range/Units 10:55 08:52 08:05 WBC (4.4-10.8) 10^3/uL RBC (4.36-5.78) 10^6/uL Hgb (13.5-17.5) g/dL Hct (40.0-50.0) % MCV (80-95) fL MCH (27.0-33.0) pg MCHC (32.0-36.0) % RDW (11.8-14.1) % Plt Count (130-400) 10^3/uL MPV (8.0-11.0) fL Immature Gran % % Neutrophils % % Lymphocytes % % Monocytes % % Eosinophils % % Basophils % % Nucleated RBC % (0.0-0.3) % Absolute Neutrophils (1.2-6.7) 10^3/uL Absolute Lymphocytes (1.2-3.4) 10^3/uL Absolute Monocytes (0.1-0.8) 10^3/uL Absolute Eosinophils (0.0-0.7) 10^3/uL Absolute Basophils (0.0-0.2) 10^3/uL PT (9.1-11.1) sec INR (0.9-1.1) APTT (20.6-30.2) sec D-Dimer (<500) ng/mlFEU Sodium (136-145) mmol/L Potassium (3.5-5.1) mmol/L Chloride (98-107) mmol/L Carbon Dioxide (21.0-32.0) mmol/L Anion Gap (3-11) mmol/L BUN (7-18) mg/dL Creatinine (0.70-1.30) mg/dL Est GFR (CKD-EPI 2020) (mL/min/1.73m2) Glucose (74-106) mg/dL Calcium (8.5-10.1) mg/dL Total Bilirubin (0.2-1.0) mg/dL AST (15-37) U/L ALT (16-63) U/L Alkaline Phosphatase (46-116) U/L Troponin I 391 H* 333 H* (<or=76) ng/L NT-Pro-B Natriuret Pep (<300) pg/mL Total Protein (6.4-8.2) g/dL Albumin (3.4-5.0) g/dL TSH (0.36-3.74) uIU/mL COVID-19 Source Nasopharynx SARS-CoV-2 (PCR) Negative (Negative) Influenza Type A (PCR) Negative (Negative) Influenza Type B (PCR) Negative (Negative) RSV (PCR) Negative (Negative) 02/19/25 Range/Units 07:55 WBC 6.86 (4.4-10.8) 10^3/uL RBC 5.40 (4.36-5.78) 10^6/uL Hgb 15.8 (13.5-17.5) g/dL Hct 46.3 (40.0-50.0) % MCV 86 (80-95) fL MCH 29.3 (27.0-33.0) pg MCHC 34.1 (32.0-36.0) % RDW 12.7 (11.8-14.1) % Plt Count 212 (130-400) 10^3/uL MPV 10.6 (8.0-11.0) fL Immature Gran % 0.4 % Neutrophils % 65.6 % Lymphocytes % 21.0 % Monocytes % 10.3 % Eosinophils % 2.0 % Basophils % 0.7 % Nucleated RBC % 0.0 (0.0-0.3) % Absolute Neutrophils 4.49 (1.2-6.7) 10^3/uL Absolute Lymphocytes 1.44 (1.2-3.4) 10^3/uL Absolute Monocytes 0.71 (0.1-0.8) 10^3/uL Absolute Eosinophils 0.14 (0.0-0.7) 10^3/uL Absolute Basophils 0.05 (0.0-0.2) 10^3/uL PT 10.9 (9.1-11.1) sec INR 1.1 (0.9-1.1) APTT 27.3 (20.6-30.2) sec D-Dimer 245 (<500) ng/mlFEU Sodium 135 L (136-145) mmol/L Potassium 4.1 (3.5-5.1) mmol/L Chloride 101 (98-107) mmol/L Carbon Dioxide 25.4 (21.0-32.0) mmol/L Anion Gap 8.6 (3-11) mmol/L BUN 15 (7-18) mg/dL Creatinine 0.9 (0.70-1.30) mg/dL Est GFR (CKD-EPI 2020) 103.40 (mL/min/1.73m2) Glucose 144 H (74-106) mg/dL Calcium 9.6 (8.5-10.1) mg/dL Total Bilirubin 0.77 (0.2-1.0) mg/dL AST 23 (15-37) U/L ALT 52 (16-63) U/L Alkaline Phosphatase 89 (46-116) U/L Troponin I 287 H* (<or=76) ng/L NT-Pro-B Natriuret Pep 1711 H (<300) pg/mL Total Protein 7.3 (6.4-8.2) g/dL Albumin 4.0 (3.4-5.0) g/dL TSH 1.68 (0.36-3.74) uIU/mL COVID-19 Source SARS-CoV-2 (PCR) (Negative) Influenza Type A (PCR) (Negative) Influenza Type B (PCR) (Negative) RSV (PCR) (Negative) Intake and Output - 24 Hour Total 03/26/24 07:34 thru 03/26/24 07:58 Intake Total 10 Balance 10 Weight 90.718 kg Intake: IV 10 Falls Risk Assessment Contributing Factors No Factors 03/26/24 07:44 Fall Total Score 0 03/26/24 07:44 Level of Risk Standard/Low Risk 03/26/24 07:44 Problems (Last Reviewed 11/15/23 @ 14:07 by Phyllis Contreras MD) Hypertrophic cardiomyopathy (Acute) NSTEMI (non-ST elevated myocardial infarction) (Acute) v v v v v v v v v Sending and/or Receiving Nurses: Please use comment section below to note any information pertinent to the patient hand-off not included above. Information / Comments: Report received from:austin melendez RN
[2024-03-26 16:34] LABS: PTT Activated 46.8 sec (20.6-30.2)
[2024-03-26] MEDS: Normal Saline Flush 10 ML SYR IVP (20:18)
[2024-03-26] MEDS: Atorvastatin 40 MG TAB PO (20:18)
--- NOTE | 2024-03-26 22:00 | RT.EKG_ITS ---
APPROVED REPORT Exam: Resting ECG Reason for Exam: ST depression noted on tele r/o on EKG Patient Location: I HR:92 bpm ECG Measurements Heart Rate 92 AXIS NJ 168 P 48 QRSd 106 QRS 18 QT 468 T 149 QTc 580 Conclusion Sinus rhythm...normal P axis, V-rate 60- 99 Supraventricular bigeminy...bigeminy string>4 w/ SV complexes Left atrial enlargement...P, P'>60mS, <-0.15mV V1 LVH with secondary repolarization abnormality...multi-LVH criteria, abnrm ST-T Anterior infarct, old...Q >40mS, abnormal ST-T, V2-V5 Prolonged QT interval...QTc >500mS
[2024-03-26 23:41] LABS: PTT Activated 59.4 sec (20.6-30.2)
[2024-03-27] VITALS (8 sets, daily range): BP systolic 107–137; BP diastolic 73–89; PULSE 68–160; RESP 18–20; TEMP 36.4–37.1; O2SAT 96–98
[2024-03-27 06:22] LABS: HGB 15.6 g/dL (13.5-17.5); MCH 29.4 pg (27.0-33.0); MCHC 33.9 % (32.0-36.0); MCV 87 fL (80-95); MPV 10.8 fL (8.0-11.0); Platelet Count 169 10^3/uL (130-400); RBC 5.31 10^6/uL (4.36-5.78); RDW 12.9 % (11.8-14.1); RDW-SD 40.4 fL; WBC 7.13 10^3/uL (4.4-10.8)
[2024-03-27 06:35] LABS: PTT Activated 58.6 sec (20.6-30.2)
[2024-03-27 06:43] LABS: BUN 13 mg/dL (7-18); CREATININE 0.8 mg/dL (0.70-1.30); Chloride 104 mmol/L (98-107); Estimated GFR 107.15 (mL/min/1.73m2); Glucose 96 mg/dL (74-106); Magnesium 2.1 mg/dL (1.8-2.4); Potassium 4.4 mmol/L (3.5-5.1); Sodium 135 mmol/L (136-145)
[2024-03-27 07:00] LABS: Troponin I 191 ng/L (<or=76)
[2024-03-27] MEDS: Metoprolol CR 25 MG TABCR PO (08:14)
[2024-03-27] MEDS: Normal Saline Flush 10 ML SYR IVP ×2 (08:15→21:58)
--- NOTE | 2024-03-27 09:12 | CHAPLAIN ---
Santy was sitting up in bed when I stopped in. He had two family members with him. I explained my role and offered support. He is waiting to be transferred for [facility] for cardiac treatment.
--- NOTE | 2024-03-27 11:14 | INITIAL_ITS ---
Date of service: 03/27/24 Time of Service: 11:14 Care Management Initial Assmt Initial Assessment Reason for Hospitalization: NSTEMI Functional Status/Living Situation Patient Presentation: Santy was sitting up in bed visiting with his when CM met with him. He needs a Cardiac Cath and is waiting for a bed to open [place] [facility] [place] can [place]. Santy denies concerns at this time. He is happy that he was able to eat today and is planning on going NPO again at midnight. Town of Residence: [place] Resides with: Child (Daughter) and Spouse ( Clementine) Significant Other/Family: Local Employment Status: Employed ([employer]) Instrumental Activities of Daily Living (ADLs): Independent Medications Medication Management: No Issues/Barriers identified Physical Functioning/Mobility Assistive Device: None Advance Directives Advance Directives: Do you have an Advance Directive: Y 03/26/24 12:00 AD On File at [facility]: Y 03/26/24 12:00 Date Asked 03/26/24 03/26/24 07:46 AD Date Reviewed 03/26/24 03/26/24 12:00 COLST On File at [facility] COLST Date Scanned Code Status Resuscitation Status Full Code Insurance Coverage/Financial Issues Insurance: BC/BS of [facility] BC/BS Out of State Financial Issues: None identified Care Team Visit Care Team Role Provider Type JOSESITO OSUNA Primary Care Provider NON-[facility] STAFF PHYSICIAN Camron Alexander DO Emergency Provider [facility] STAFF PHYSICIAN Wallace Omer MD Admit Provider [facility] STAFF PHYSICIAN Attending Provider Discharge Anticipated Barriers to Discharge: Medical Status Patient/Family Education Needs: Review discharge instructions, discuss Ask Me Three Transportation: EMS (Will be coordinated by [facility]) Plan: Transfer [place] [facility] bed availability. CM will follow. Social Determinants of Health Screening Social Determinants of Health last assessed: 03/27/24 Will the Patient Participate in the Screening?: Yes Do you worry about having a steady place to live?: no Problems where you live: no known problems In the past 12 months, have you had to go without electric, gas, oil or water in your home?: no Have you or anyone in your house had to go without enough food to eat?: no Has lack of transportation kept you from medical appointments or from doing things needed for daily living?: no Has anyone in your life made you feel unsafe or unsupported?: no How hard is it for you to pay for the very basics like food, housing, medical care, and heating? Would you say it is:: Not hard at all Do you want help finding or keeping work or a job?: I do not need or want help If for any reason you need help with day-to-day activities such as bathing, preparing meals, shopping, managing finances, etc., do you get the help you need?: I get all the help I need How often do you feel lonely or isolated from those around you?: Rarely Do you speak a language other than Azeri at home?: No Health Related Social Needs Health related social needs: feeling lonely/isolated (Z60.8) PFSH All Active Problems (Updated 03/26/24 @ 16:33 by Camron Alexander DO) Hypertrophic cardiomyopathy (Acute) NSTEMI (non-ST elevated myocardial infarction) (Acute) Otorrhea, right ear (Acute) Medical History Hypertension Hyperlipidemia Overweight Murmur, cardiac Vitamin D deficiency Unspecified fracture of sacrum, subsequent encounter for fracture with routine healing Burst fracture of cervical vertebra with routine healing 2-part nondisplaced fracture of surgical neck of right humerus, sequela Fatigue Neuropathy Hypertrophic nonobstructive cardiomyopathy Diverticulosis of sigmoid colon Perforation of right tympanic membrane Family History Mother Dementia Cancer Skin cancer (melanoma) Father Heart disease Brother TIA (transient ischemic attack) Paternal Grandfather Heart attack Paternal Grandmother Heart attack Social History Smoking/Tobacco Use Status: Former Tobacco Use Smoking risk assessment performed?: Yes Alcohol Intake: current Alcohol Intake frequency: a few times a month Alcohol type: hard liquor Drug use: Never Substance use type: does not use Housing: house Do you feel safe at home: Yes Do you feel safe in your relationship?: Yes 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
--- NOTE | 2024-03-27 11:14 | CMDISCH_ITS ---
Date of service: 03/27/24 Time of Service: 11:14 Care Management Discharge Plan Reason for Hospitalization: NSTEMI Discharge Plan: Transfer to [facility] for a Cardiac Cath, pending bed availability. EMS will transport. Patient/Family Education Needs: Review of transfer details with patient and family. Discuss ask me three. Services Needed at Discharge: Transportation (Coordinated by [facility]) SDOH Health Related Social Needs: Health related social needs feeling lonely/isolated (Z 60.8)
--- NOTE | 2024-03-27 16:30 | RT.EKG_ITS ---
APPROVED REPORT Exam: Resting ECG Reason for Exam: new Afib Patient Location: I HR:91 bpm ECG Measurements Heart Rate 91 AXIS MD 171 P 45 QRSd 107 QRS 6 QT 359 T 145 QTc 443 Conclusion Sinus rhythm...normal P axis, V-rate 60- 99 Atrial premature complex...SV complex w/ short R-R interval Left atrial enlargement...P, P'>60mS, <-0.15mV V1 LVH with secondary repolarization abnormality...multi-LVH criteria, abnrm ST-T
[2024-03-27] MEDS: Metoprolol 25 MG TAB PO (16:44)
--- NOTE | 2024-03-27 17:04 | PGE_ITS ---
Date of Service Date of service: 03/27/24 Time of Service: 17:04 Assessment and Plan Assessment and plan (1) NSTEMI (non-ST elevated myocardial infarction): Status: Acute Assessment and plan: - Patient without chest pain or EKG changes but was noted to have elevated troponin initially 287 increased to 333 -Was given full dose aspirin and started on heparin drip -Has been accepted by [facility] cardiology transfer for cardiac catheterization in the setting of the NSTEMI -Patient is not had any chest pain, will will give sublingual nitro if chest pain develops -Patient currently n.p.o., will allow to eat later this afternoon if it does not appear he is being transferred and will again make n.p.o. at midnight (2) Hypertrophic cardiomyopathy: Status: Acute Assessment and plan: - History of, and again seen on POCUS done in emergency department (3) Hypertension: Assessment and plan: - Continue home metoprolol succinate -Hold lisinopril (4) Hyperlipidemia: Assessment and plan: - Continue statin (5) Atrial fibrillation with RVR: Status: Acute Assessment and plan: -brief episode of that appeared to be a-fib on tele around 16:30 with rates 120- 150bpm -patient without chest pain, but did note mild fluttering -patient given lopressor PO 25mg -once EKG was done it showed rate 91 with PACs -will continue to monitor on tele Subjective Subjective Interval history since last seen: Patient continues to state that he is doing well and is looking forward to transfer to [facility] once a bed is available. Exam Narrative Exam Narrative: Well-appearing gentleman laying in bed in no acute distress, ANO x 4, heart regular rhythm with a audible holosystolic murmur, lungs clear to auscultation bilaterally, abdomen soft, nontender, nondistended Objective Last Vital Signs Temp 98.1 F 03/27/24 15:33 Pulse 88 03/27/24 15:33 Resp 18 03/27/24 15:33 BP 137/89 03/27/24 15:33 Pulse Ox 98 03/27/24 15:33 Laboratory Results - last 24 hr 03/26/24 03/27/24 23:25 06:10 WBC 7.13 RBC 5.31 Hgb 15.6 Hct 46.0 MCV 87 MCH 29.4 MCHC 33.9 RDW 12.9 Plt Count 169 MPV 10.8 APTT 59.4 H 58.6 H Sodium 135 L Potassium 4.4 Chloride 104 Carbon Dioxide 23.0 Anion Gap 8.0 BUN 13 Creatinine 0.8 Est GFR (CKD-EPI 2020) 107.15 Glucose 96 Calcium 9.0 Magnesium 2.1 Troponin I 191 H* PAWSS Have you Been Recently Intoxicated or Drunk Within the Last 30 days?: Yes Have you Ever Experienced Previous Episodes of Alcohol Withdrawal?: No Have you ever Experienced Withdrawal Seizures?: No Have you ever Experienced Delirium Tremens(DT)s?: No Have you ever undergone Alcohol Rehabilitation Treatment (i.e, inpt ot outpatient treatment programs)?: No Have you ever Experienced Blackouts?: No Have you ever Combined Alcohol with other Downers within the last 90 days?: No Have you ever Combined Alcohol with any other Substance of Abuse during the last 90 days?: No Positive Blood Alcohol level on Presentation? [PCS.BAL]: Unable to Obtain Evidence of Increased Autonomic Activity (i.e. HR>120, tremor, sweating, agitation, nausea)?: No Result: 1 Time Spent with Patient Time Spent with Patient: >50 minutes Time was spent: preparing to see the patient(eg.review tests), obtaining and/or reviewing separately otained hiistory, ordering medications,tests, procedures, referring, communicating with other health residential child care counselor, indepentently interpreting results, counseling the patient and care coordination
--- NOTE | 2024-03-27 18:04 | DSE_ITS ---
Date of service: 03/27/24 Time of Service: 18:04 DS: Diagnosis Discharge Diagnosis (1) NSTEMI (non-ST elevated myocardial infarction): Status: Acute (2) Hypertrophic cardiomyopathy: Status: Acute (3) Hypertension: (4) Hyperlipidemia: (5) Atrial fibrillation with RVR: Status: Acute Discharge Plan Disposition Patient Disposition: Transfer-Acute Inpatient Care Specific Acute Inpt Facility: [facility] Condition: Good Discharge Details Reason For Visit: NSTEMI Admit Date/Time: 03/26/24 11:27 Admit Provider: Wallace Omer Attending Provider: Wallace Omer Primary Care Provider: JOSESITO OSUNA Hospital Course Hospital Course: Patient presented with uneasy feeling/discomfort but not overt pain in his chest and was found to have NSTEMI based on elevated troponin peaking at about 350. EKG was without t-wave inversions, ST depressions or elevations. Patient also has known history of non-obstructive hypertrophic cardiomyopathy. Patient has been on ASA, heparin drip and metoprolol since admission. He did have a brief period of what appeared to be a-fib RVR with rates up to 160 but mostly 120-140 that improved with additional dose of PO lopressor 25mg, though EKG obtained showed PACs with rate of 91. Given diagnosis of NSTEMI it was determined that patient was appropriate for transfer [place] [facility] [place] for [place] heart catheterization. Home Meds and New Rx's Prescriptions: No Action acetaminophen 325 mg capsule 325 mg PO ONCE PRN atorvastatin 40 mg Tablet 40 mg PO QHS lisinopril 20 mg Tablet 20 mg PO DAILY metoprolol succinate 25 mg tablet extended release 24 hr 25 mg PO DAILY Patient Comments: TAKE ONE TABLET BY MOUTH EVERY DAY Discharge Instructions Activity:: Activity as Tolerated Equipment/Supplies:: No Equipment Needed Diet:: As Tolerated Discharge Orders Discharge Orders: Discharge Order (Routine); Ordered 03/27/24 Ordered By: Wallace Omer DS: Summary Time Spent with Patient providing and/or coordinating discharge services: Greater than 30 minutes Status at Discharge Functional status at discharge: independent ambulation Overall status at discharge: patient is back to baseline Mental Status: mental status grossly normal Speech and Movement: speech and movement normal Mood: congruent mood Affect: normal affect Quality:SDOH Health Related Social Needs: Health related social needs feeling lonely/isolated (Z 60.8) Exam Narrative Exam Narrative: Well-appearing gentleman laying in bed in no acute distress, ANO x 4, heart regular rhythm with a audible holosystolic murmur, lungs clear to auscultation bilaterally, abdomen soft, nontender, nondistended Psych Mental Status: mental status grossly normal Speech and Movement: speech and movement normal Mood: congruent mood Affect: normal affect DS: Data Vitals/I&O Vitals and I&O: Vital Signs Temperature 98.1 F 03/27/24 15:33 Temperature Source Tympanic 03/27/24 15:33 Pulse 88 03/27/24 15:33 Pulse 65 03/26/24 12:20 Respiratory Rate 18 03/27/24 15:33 Respiratory Effort Normal 03/26/24 13:12 Respiratory Depth Normal 03/26/24 13:12 Respiratory Pattern Normal 03/26/24 13:12 Blood Pressure 137/89 03/27/24 15:33 Blood Pressure Mean 75 03/26/24 12:15 Pulse Oximetry 98 03/27/24 15:33 Oxygen Delivery Method Room Air 03/27/24 15:33 Oxygen Flow Rate 0 03/27/24 15:33 Pain Level 0 03/27/24 03:45 Intake & Output 03/27/24 03/27/24 03/28/24 05:59 17:59 05:59 Other: Urine Color Yellow Urine Appearance Clear Comment Pt denies any difficulty urinating Stool Size Moderate Stool Characteristics Formed Brown Data Completed and Pending Labs on day of discharge: Labs from last 24 hours 03/27/24 03/26/24 06:10 23:25 WBC 7.13 RBC 5.31 Hgb 15.6 Hct 46.0 MCV 87 MCH 29.4 MCHC 33.9 RDW 12.9 Plt Count 169 MPV 10.8 APTT 58.6 H 59.4 H Sodium 135 L Potassium 4.4 Chloride 104 Carbon Dioxide 23.0 Anion Gap 8.0 BUN 13 Creatinine 0.8 Est GFR (CKD-EPI 2020) 107.15 Glucose 96 Calcium 9.0 Magnesium 2.1 Troponin I 191 H* PFSH All Active Problems (Updated 03/27/24 @ 17:05 by Wallace Omer MD) Atrial fibrillation with RVR (Acute) Hypertrophic cardiomyopathy (Acute) NSTEMI (non-ST elevated myocardial infarction) (Acute) Otorrhea, right ear (Acute) Medical History Hypertension Hyperlipidemia Overweight Murmur, cardiac Vitamin D deficiency Unspecified fracture of sacrum, subsequent encounter for fracture with routine healing Burst fracture of cervical vertebra with routine healing 2-part nondisplaced fracture of surgical neck of right humerus, sequela Fatigue Neuropathy Hypertrophic nonobstructive cardiomyopathy Diverticulosis of sigmoid colon Perforation of right tympanic membrane Family History Mother Dementia Cancer Skin cancer (melanoma) Father Heart disease Brother TIA (transient ischemic attack) Paternal Grandfather Heart attack Paternal Grandmother Heart attack Social History Smoking/Tobacco Use Status: Former Tobacco Use Smoking risk assessment performed?: Yes Alcohol Intake: current Alcohol Intake frequency: a few times a month Alcohol type: hard liquor Drug use: Never Substance use type: does not use Housing: house Do you feel safe at home: Yes Do you feel safe in your relationship?: Yes 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
[2024-03-27] MEDS: Atorvastatin 40 MG TAB PO (19:43)
[2024-03-27] MEDS: Heparin in 0.45% NaCl 25,000 UNIT/250 ML BAG 12 UNIT IVINF (21:42)
[2024-03-27] MEDS: Metoprolol 5 MG/5 ML VIAL 2.5 MG IVP (21:59)
== END 2024-03-27 21:51 | disposition short-term general hospital (02) | DRG 281 ==
LOC: ER 12:00 → MS 13:11
PROVIDERS: General Practice; Admitting Provider Family Medicine; Emergency Provider Student in an Organized Health Care Education/Training Program; PCP Nurse Practitioner Primary Care; Responsible Provider Family Medicine; Visit Provider Family Medicine
DX: I21.4 Non-ST elevation (NSTEMI) myocardial infarction (principal); I42.2 Other hypertrophic cardiomyopathy; I10 Essential (primary) hypertension; E78.5 Hyperlipidemia, unspecified; I48.91 Unspecified atrial fibrillation; E66.3 Overweight; E55.9 Vitamin D deficiency, unspecified; G62.9 Polyneuropathy, unspecified; K57.30 Diverticulosis of large intestine without perforation or abscess without bleeding; Z87.891 Personal history of nicotine dependence; Z68.28 Body mass index [BMI] 28.0-28.9, adult
CPT/HCPCS: 00123; 36415; 80048; 80053; 85027; 87637; 93005; 93308; 96365; 96366; 99285; 71045; 83735; 83880; 84443; 84484; 85025; 85379; 85610; 85730; 93010; 99223; 99239; J1644

== ENCOUNTER 2024-06-15 19:40 | Inpatient (IN) | payer BC, SELFPAY ==
[2024-06-15] VITALS (75 sets, daily range): BP systolic 73–151; BP diastolic 49–116; PULSE 45–151; RESP 9–32; TEMP 36.9; O2SAT 95–99
--- NOTE | 2024-06-15 19:30 | RT.EKG_ITS ---
APPROVED REPORT Exam: Resting ECG Reason for Exam: A-Comfort Patient Location: E HR:109 bpm ECG Measurements Heart Rate 109 AXIS OR 170 P 0 QRSd 110 QRS 38 QT 344 T 197 QTc 453 Conclusion Atrial fibrillation with RVR, rate 109 No interval abnormalities LVH with ST changes unchanged from priors, sgarbosa negative
--- NOTE | 2024-06-15 20:10 | ED.GENADUL_ITS ---
Discharge Plan Discharge Details Chief Complaint: Palpitatns Primary Care Provider: JOSESITO OSUNA ED Provider: Dionna Gamboa Home Meds and New Rx's Prescriptions: No Action acetaminophen 325 mg capsule 325 mg PO ONCE PRN atorvastatin 40 mg Tablet 40 mg PO QHS lisinopril 20 mg Tablet 20 mg PO DAILY metoprolol succinate 25 mg tablet extended release 24 hr 25 mg PO DAILY Patient Comments: TAKE ONE TABLET BY MOUTH EVERY DAY Eliquis 5 mg tablet 5 mg PO BID HPI <Dionna Baker - Last Filed: 06/16/24 00:27> General Date/Time Provider Initiated Documentation: 06/15/24 19:45 . HPI Narrative: Santy is a 53 year old male who presents to the emergency department today for evaluation of A-fib with RVR. He reports that approximately 45 minutes ago he felt his heart working hard and shortness of breath, consistent with previous episodes of A-fib with RVR. He reports that at the onset he had a flush of warmth and some lightheadedness, but that has since passed. Denies known triggers, recent fever/chills, congestion, sore throat, cough, chest pain, nausea/vomiting, change in p.o. intake, abdominal pain, change in bowel or bladder function, pedal edema. Last episode of A-fib with RVR was a couple months ago, he has an appointment tomorrow at [facility] to discuss ablation. He is anticoagulated on Eliquis. He does drink alcohol regularly, approximately 1 drink per night for the last 3 nights, this is unusual for him. Denies . Past medical history is significant for congenital hypertrophic cardiomyopathy. Physical exam reassuring. Patient alert and oriented, no acute distress, does appear anxious. Slightly increased work of breathing, lung sounds clear bilaterally. Cardiac murmur noted, irregular rate and rhythm tachycardia noted. Abdomen soft, nondistended, nontender to palpation. No JVD or pedal edema. Moving all extremities equally. Radial pulses intact bilaterally. D/dx includes but is not limited to: A-fib with RVR, ACS, dehydration, electrolyte imbalance, symptomatic anemia, thyroid dysfunction I independently interpreted the following tests: EKG shows tachycardia with a regular rate and LVH, rate 109. Normal intervals; unchanged from previous in Mar 2024. CBC, CMP, magnesium, TSH all reassuring. Troponins flat, 57-59. Cardiac POCUS performed, IVC collapsible and less than 2 mm. No B-lines. Heart is enlarged, however does appear to have good contractility, no pericardial effusion. While in the emergency department, Santy received metoprolol IV 5 mg, this resulted in rate reduction, however patient did become hypotensive and dizzy. He received (3) 500 cc boluses of normal saline. Repeat EKG obtained after metoprolol, shows atrial fibrillation with rate of 94 with LVH, no significant change from previous. Discussed case with Dr. Wheeler, digester hand at [facility] [place]; reviewed patient labs, presentation, EKG, and POCUS. Recommends that patient have an ambulatory trial to rule out chest discomfort or dizziness and observation until 1130 for blood pressure/heart rate, as IV metoprolol has a half-life of 3 to 4 hours. 2315: Santy was able to ambulate without chest discomfort or dizziness, however heart rate did increase into the 130s to 140s while ambulating and persists in the 110s-120s at rest. Third troponin (3 hour) obtained- 77 (increased from 59). Call placed to [facility] [place]discussed case with Dr. Wheeler, digester hand. This is a longer than usual run of A-fib for Santy. He recommends that patient be observed with cardiac monitoring overnight to let metoprolol washout and see if patient returns normal sinus rhythm. Repeat EKG and troponin to be performed at 6 hours. Since patient confirms that he has not missed any doses of his Eliquis in the last 3 weeks, cardioversion can be considered. I did confirm with patient that he did not miss any doses, stressing that he would put him at a risk of serious complications such as stroke if a blood clot had been allowed to form; he confirms that he has taken Eliquis as prescribed without deviation. Handoff report given to Dr. Alexander, overnight attending. Related Data Home Medications ?Medication ?Instructions ?Recorded ?Confirmed atorvastatin 40 mg tablet 40 mg PO QHS 12/15/19 06/15/24 lisinopril 20 mg tablet 20 mg PO DAILY 12/15/19 06/15/24 acetaminophen 325 mg capsule 325 mg PO ONCE PRN 10/04/22 06/15/24 metoprolol succinate 25 mg 25 mg PO DAILY 03/26/24 06/15/24 tablet,extended release 24 hr apixaban 5 mg tablet (Eliquis) 5 mg PO BID 06/15/24 06/15/24 Allergies Allergy/AdvReac Type Severity Reaction Status Date / Time No Known Allergies Allergy Verified 06/15/24 19:48 General Stated Complaint: Palpitatns PRITESH: 2 Review of Systems <Dionna Yan Filed: 06/16/24 00:27> Narrative: see HPI Exam <Dionna Baker Last Filed: 06/16/24 00:27> Const General: cooperative, healthy appearing and anxious Nutritional Appearance: average body habitus and well nourished Orientation: alert and oriented x3 HENMT Head: normal to inspection Mouth: oral mucosae normal Neck Neck: normal visual inspection and no JVD Chest Chest: normal inspection of the chest Resp Effort & Inspection: able to speak in complete sentences and tachypneic (upon arrival, resolved after metoprolol) Auscultation: clear to auscultation bilaterally Cardio Jugular venous pressure: no JVD Rate: tachycardic Rhythm: abnormal rhythm irregularly irregular Heart Sounds: murmur Pulses: radial pulses present GI Inspection: normal to inspection and non-distended Palpation: soft, not firm, no guarding and nontender Skin General skin exam: no rashes or lesions noted Trauma: no lacerations or abrasions Neuro General: patient alert, patient oriented x3, gait normal, tone normal and moves all extremities Motor: muscle tone normal throughout and strength 5/5 throughout Course <Dionna Yan Filed: 06/16/24 00:27> Vital Signs Vital signs: Vital Signs Temperature 36.9 C 06/15/24 19:46 Pulse 151 H 06/15/24 19:46 Respiratory Rate 32 H 06/15/24 19:46 Blood Pressure 115/82 06/15/24 19:46 Pulse Oximetry 99 06/15/24 19:46 Temperature 36.9 C 06/15/24 19:46 Pulse 151 H 06/15/24 19:46 Respiratory Rate 32 H 06/15/24 19:46 Blood Pressure 115/82 06/15/24 19:46 Pulse Oximetry 99 06/15/24 19:46 Pain Level 0 06/15/24 19:46 Medical Decision Making <Dionna Baker - Last Filed: 06/16/24 00:27> Imaging Data Radiologic Study: Radiologist's impression: PROCEDURE INFORMATION: Exam: XR Chest Exam date and time: 06/15/2024 9:12 PM Age: 53 years old Clinical indication: Other: Afib rvr TECHNIQUE: Imaging protocol: Radiologic exam of the chest. Views: 1 view. COMPARISON: CR XR PORTABLE CHEST AP 03/26/2024 8:14 AM FINDINGS: Lungs: No gross focal pulmonary consolidation is seen. There is hazy indistinctness of the pulmonary vascular margins which can be seen with interstitial pulmonary edema. Pleural spaces: No pleural effusion or pneumothorax is demonstrated. Heart/Mediastinum: The heart is enlarged. Bones/joints: Surgical screws are partially visualized in the right humeral head. The visualized bony structures appear grossly intact. IMPRESSION: 1. Enlarged heart. 2. Hazy indistinctness of the pulmonary vascular margins. This appearance can be seen with interstitial pulmonary edema. Clinical correlation is recommended. No gross focal pulmonary consolidation is demonstrated. Quality:SDOH Health Related Social Needs: Health related social needs feeling lonely/isolated (Z 60.8) Critical Care Time <Dionna Baker - Last Filed: 06/16/24 00:27> Critical Care Time Attestation: I have personally spent 30 minutes of critical care time, exclusive of time spent on any procedures, in evaluation and management of this critically ill patient?s condition of A-fib with RVR. I provided the following critical care treatment: Frequent reassessments and cardiac monitoring, repeat EKGs, consultation with cardiology [facility] <Dionna Yan Last Filed: 06/16/24 00:27> All Active Problems (Updated 06/16/24 @ 00:24 by Pierce Priest) Elevated troponin level not due to acute coronary syndrome (Acute) Atrial fibrillation with RVR (Acute) Hypertrophic cardiomyopathy (Chronic) NSTEMI (non-ST elevated myocardial infarction) (Acute) Otorrhea, right ear (Acute) Medical History Hypertension Hyperlipidemia Overweight Murmur, cardiac Vitamin D deficiency Unspecified fracture of sacrum, subsequent encounter for fracture with routine healing Burst fracture of cervical vertebra with routine healing 2-part nondisplaced fracture of surgical neck of right humerus, sequela Fatigue Neuropathy Hypertrophic nonobstructive cardiomyopathy Diverticulosis of sigmoid colon Perforation of right tympanic membrane Family History Mother Dementia Cancer Skin cancer (melanoma) Father Heart disease Brother TIA (transient ischemic attack) Paternal Grandfather Heart attack Paternal Grandmother Heart attack Social History Smoking/Tobacco Use Status: Former Tobacco Use Smoking risk assessment performed?: Yes Alcohol Intake: current Alcohol Intake frequency: a few times a month Alcohol type: hard liquor Drug use: Never Substance use type: does not use Housing: house Do you feel safe at home: Yes Do you feel safe in your relationship?: Yes 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 POCUS Exam (ED) <Dionna Baker - Last Filed: 06/16/24 00:27> Limited Cardiac Exam Exam complete <Radha Cummings MD - Last Filed: 06/15/24 21:00> Limited Cardiac Exam DATE OF EXAM: 06/15/24 TIME OF EXAM: 20:59 PROVIDER THAT PERFORMED THE STUDY: Radha Cummings IS THIS A REPEAT EXAM DURING THIS ENCOUNTER: no REASON FOR EXAM: Evaluation of LV function and Hypotension VISUALIZED STRUCTURES: Four Chambers, LVOT, Aortic valve, Mitral valve, Interventricular septum and IVC VIEW OBTAINED: Apical 4-Chamber, Parasternal long-axis, Parasternal short-axis and Subxiphoid PERTINENT FINDINGS/IMPRESSION: IVC inspiratory collapsability; No pericardial effusion and No RV dysfunction INCIDENTAL FINDINGS: Hypertrophic cardiomyopathy and thickening of the LV wall/septum consistent with patient's history, preserved ejection fraction appreciated, no B-lines on bilateral lung apices, IVC less than 2 cm
[2024-06-15] MEDS: Normal Saline 1,000 ML 1000 ML IV (20:18)
[2024-06-15] MEDS: Metoprolol 5 MG/5 ML VIAL IVP (20:18)
[2024-06-15 20:28] LABS: Abs Immature Grans 0.03 10^3/uL (0.0-0.06); Absolute Basophil Count 0.09 10^3/uL (0.0-0.2); Absolute Eosinophil Count 0.26 10^3/uL (0.0-0.7); Absolute Lymphocyte Count 3.09 10^3/uL (1.2-3.4); Absolute Monocyte Count 1.12 10^3/uL (0.1-0.8); Absolute Neutrophil Count 4.85 10^3/uL (1.2-6.7); Eosinophils % 2.8 %; HCT 44.8 % (40.0-50.0); HGB 15.7 g/dL (13.5-17.5); Immature Grans % 0.3 %; Lymphocytes % 32.7 %; MCH 28.9 pg (27.0-33.0); MCV 82 fL (80-95); Monocytes % 11.9 %; Neutrophils % 51.3 %; Platelet Count 207 10^3/uL (130-400); RBC 5.44 10^6/uL (4.36-5.78); RDW 12.7 % (11.8-14.1); RDW-SD 37.6 fL; WBC 9.44 10^3/uL (4.4-10.8)
[2024-06-15 20:45] LABS: ALT 49 U/L (16-63); AST 23 U/L (15-37); Albumin 4.1 g/dL (3.4-5.0); Alkaline Phosphatase 127 U/L (46-116); BUN 11 mg/dL (7-18); Bilirubin, Total 0.5 mg/dL (0.2-1.0); CREATININE 0.8 mg/dL (0.70-1.30); Calcium 9.6 mg/dL (8.5-10.1); Chloride 101 mmol/L (98-107); Estimated GFR 107.15 (mL/min/1.73m2); Glucose 155 mg/dL (74-106); Magnesium 1.9 mg/dL (1.8-2.4); Potassium 3.5 mmol/L (3.5-5.1); Sodium 133 mmol/L (136-145); Total Protein 7.3 g/dL (6.4-8.2); Troponin I 57 ng/L (<or=76)
[2024-06-15 20:52] LABS: TSH (W/Ref FT4) 2.68 uIU/mL (0.36-3.74)
--- NOTE | 2024-06-15 21:00 | DI.RAD_ITS ---
Exam(s) XR PORTABLE CHEST AP EXAM: XR PORTABLE CHEST AP CLINICAL HISTORY: afib RVR TECHNIQUE: 2D digital imaging was performed of the chest. One image was obtained. An AP view was ob tained. COMPARISON: CR XR PORTABLE CHEST AP from 03/26/2024 FINDINGS: MEDIASTINUM: Normal. HEART: Stable cardiac size. PULMONARY VASCULATURE: The pulmonary vasculature appears stable. LUNGS: Clear. PLEURAL SPACE: No pleural effusion or pneumothorax. BONE:Within normal limits for the patient's age. OTHER FINDINGS:Normal. IMPRESSION: 1. No acute pulmonary findings. 2. Stable heart size. 3. No focal consolidating infiltrates. 4. The preliminary [facility] report was reviewed. DATA REPOSITORY: RADIATION DOSE DELIVERED:
--- NOTE | 2024-06-15 21:08 | NUR.NOTE ---
Pt presented to the ED with SOB and rapid HR for 30 mins COMPLAINT INSPECTOR. pt was taken straight back where EKG was performed, triage completed and placed on central monitor. 1 PIV established with initial labs drawn in the Right AC at 1958. 1 liter of NS hung and 5 mg of metoprolol given over 5 mins. Blood pressures began to drop with MAPS remaining at 65, this contract technical writer inquired if the pt would benefit from POCUS exam due to hx and reduction in BP. fluids were paused at 500 ccs, Providers Dr. Jeffries and Dionna Chavira BUSINESS OPERATIONS MANAGER performed bedside POCUS to evaluate fluid responsiveness. Provider stated that the patient is appropriate to received fluids. This contract technical writer continued fluids to finish liter for blood pressures with MAPS beginning to trend below 65.
[2024-06-15 21:14] LABS: Troponin I 59 ng/L (<or=76)
--- NOTE | 2024-06-15 21:30 | RT.EKG_ITS ---
APPROVED REPORT Exam: Resting ECG Reason for Exam: post-beta yanira Patient Location: E HR:94 bpm ECG Measurements Heart Rate 94 AXIS MT [id number] P [id number] QRSd 109 QRS 35 QT 371 T 191 QTc 477 Conclusion Atrial fibrillation, rate 94 No interval abnormalities LVH with ST changes unchanged from priors, sgarbosa negative No significant changes from priors, RVR has resolved
[2024-06-15] MEDS: Normal Saline 500 ML 1000 ML IV ×2 (21:36→23:25)
--- NOTE | 2024-06-15 22:40 | DI.[facility]_ITS ---
PROCEDURE INFORMATION: Exam: XR Chest Exam date and time: 06/15/2024 9:12 PM Age: 53 years old Clinical indication: Other: Afib rvr TECHNIQUE: Imaging protocol: Radiologic exam of the chest. Views: 1 view. COMPARISON: CR XR PORTABLE CHEST AP 03/26/2024 8:14 AM FINDINGS: Lungs: No gross focal pulmonary consolidation is seen. There is hazy indistinctness of the pulmonary vascular margins which can be seen with interstitial pulmonary edema. Pleural spaces: No pleural effusion or pneumothorax is demonstrated. Heart/Mediastinum: The heart is enlarged. Bones/joints: Surgical screws are partially visualized in the right humeral head. The visualized bony structures appear grossly intact. IMPRESSION: 1. Enlarged heart. 2. Hazy indistinctness of the pulmonary vascular margins. This appearance can be seen with interstitial pulmonary edema. Clinical correlation is recommended. No gross focal pulmonary consolidation is demonstrated. Dictated and Authenticated by: Royce Hirsch MD. Orderin Xochilt Villareal MD
[2024-06-15 23:23] LABS: Troponin I 77 ng/L (<or=76)
--- NOTE | 2024-06-15 23:47 | NUR.NOTE ---
two more additional boluses ordered for low Maps. ambulation trial lead to Heart rates in the 130s and systolic BP appx high 80s to low 90s. pt remained asymptomatic with no complaints of SOB
--- NOTE | 2024-06-15 23:57 | W.PM.HP.N ---
Date of service: 06/16/24 Time of Service: 00:20 Assessment and Plan Assessment and plan (1) Atrial fibrillation with RVR: Start date: 06/16/24 Status: Acute Assessment and plan: This is a 53-year-old gentleman with a history of hypertrophic cardiomyopathy and paroxysmal atrial fibrillation of recent onset on Eliquis and metoprolol which has been increased recently. He presented to the ED with sudden onset of RVR with his atrial fibrillation. Patient had a positive troponin which to be trended and appears to be increasing slightly. He is not having symptoms with heart rate controlled in the 100-110 range. EKG had no ischemic changes. He does have metoprolol which will be given in split dosing if he returns to sinus rhythm by morning but if he remains in atrial fibrillation, cardioversion should be considered. The patient is on Eliquis and has been compliant with this medication. Echocardiogram was ordered with cardiology consultation locally. He does go to [facility] [place] cardiology and electrophysiology as well. He is a full code. (2) Elevated troponin level not due to acute coronary syndrome: Status: Acute Assessment and plan: This appears to be secondary to his tachycardia with no ischemic changes on EKG. Trend troponins and monitor for symptoms of acute coronary syndrome the patient already on Eliquis. He also takes moderate dose Lipitor. He is not on aspirin. (3) Hypertrophic cardiomyopathy: Status: Chronic Assessment and plan: Hold lisinopril for now with patient blood pressure slightly low. Follow-up echocardiogram and follow-up with [facility] [place] cardiology. (4) Hypertension: Assessment and plan: Hold lisinopril for now and split dose metoprolol if needed. Patient blood pressure is low presently. (5) Hyperlipidemia: Assessment and plan: Continue moderate dose atorvastatin consider increasing to high dose if troponins continue to rise. History of Present Illness History of Present Illness Chief Complaint: Chest pressure with racing heart sudden onset just prior to ED presentation Narrative: This is a 53-year-old male patient who has a history of paroxysmal atrial fibrillation recently on metoprolol 50 mg which just was recently increased. He also has a longer history of hypertrophic cardiomyopathy being seen at [facility]. He presented to the ED with sudden onset of rapid heartbeat palpitations and chest pressure which was similar to his previous episodes of RVR with PAF. In the ED he was given IV metoprolol but blood pressure was slightly low and this was not continued. Cardiology was consulted with Dr. Wheeler advising observation with trending troponin since his first troponin was slightly positive. His heart rate did decrease between 100 and 110 with the patient having less symptoms. He is already on Eliquis. If the patient continues to be in atrial fibrillation by the morning they could consider cardioversion and cardiology will be consulted. He was scheduled to see [facility] [place] cardiology and electrophysiology to discuss possible ablation. He does drink alcohol daily recently which is not his usual. He denies any chest pain or shortness of breath at rest. He is tolerating his present mild tachycardia. Patient will be admitted to ICU and trend troponins and if he becomes symptomatic with hypotension with atrial fibrillation and rapid ventricular response, cardioversion could be considered emergently. If he remains stable this can be discussed with cardiology in the morning and [facility] [place] cardiology for follow-up. He is a full code. Review of Systems Narrative: 13 point review of systems otherwise unrevealing or stable. PFS All Active Problems (Updated 06/16/24 @ 00:54 by Camron Alexander DO) Elevated troponin level not due to acute coronary syndrome (Acute) Atrial fibrillation with RVR (Acute) Hypertrophic cardiomyopathy (Chronic) NSTEMI (non-ST elevated myocardial infarction) (Acute) Otorrhea, right ear (Acute) Medical History Hypertension Hyperlipidemia Overweight Murmur, cardiac Vitamin D deficiency Unspecified fracture of sacrum, subsequent encounter for fracture with routine healing Burst fracture of cervical vertebra with routine healing 2-part nondisplaced fracture of surgical neck of right humerus, sequela Fatigue Neuropathy Hypertrophic nonobstructive cardiomyopathy Diverticulosis of sigmoid colon Perforation of right tympanic membrane Family History Mother Dementia Cancer Skin cancer (melanoma) Father Heart disease Brother TIA (transient ischemic attack) Paternal Grandfather Heart attack Paternal Grandmother Heart attack Social History Smoking/Tobacco Use Status: Former Tobacco Use Smoking risk assessment performed?: Yes Alcohol Intake: current Alcohol Intake frequency: a few times a month Alcohol type: hard liquor Drug use: Never Substance use type: does not use Housing: house Do you feel safe at home: Yes Do you feel safe in your relationship?: Yes 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 Meds Allergies and Home Medications Allergies Allergy/AdvReac Type Severity Reaction Status Date / Time No Known Allergies Allergy Verified 06/15/24 19:48 Home Medications ?Medication ?Instructions ?Recorded ?Confirmed ?Type atorvastatin 40 mg tablet 40 mg PO QHS 12/15/19 06/15/24 History lisinopril 20 mg tablet 20 mg PO DAILY 12/15/19 06/15/24 History acetaminophen 325 mg capsule 325 mg PO ONCE PRN 10/04/22 06/15/24 History metoprolol succinate 25 mg 25 mg PO DAILY 03/26/24 06/15/24 History tablet,extended release 24 hr apixaban 5 mg tablet (Eliquis) 5 mg PO BID 06/15/24 06/15/24 History Exam Narrative Exam Narrative: General: Patient appears appropriate for age, alert and oriented x 3 and in no acute distress. HEENT: Normocephalic, eyes with pupils equal and reactive to light symmetrically, extraocular movement intact and sclera anicteric. Oropharynx with moist mucosa and good dentition. Neck: Supple without JVD. Back: Normal posture without CVA tenderness. Lungs: Clear to auscultation percussion with no focalizing rales or rhonchi. Normal vesicular breath sounds. Heart: Irregularly irregular rhythm with tachycardic rate, 4/6 pansystolic murmur left sternal border and apex. No gallop or rubs. Abdomen: Normal contour, soft and nontender to palpation with no palpable hepatosplenomegaly. Bowel sounds positive all quadrants. Genitalia/rectal: Exam deferred. Extremities: No clubbing, cyanosis or pitting edema. Peripheral pulses intact. Skin: Normal color, warm and dry. Neuro: Cranial nerves II through XII gross intact, no focalized motor deficits or tremor. Psych: Normal affect and mood. No abnormal thought processes. Remote and recent memory intact. Results Imaging Imaging Studies: Exam: XR Chest Exam date and time: 06/15/2024 9:12 PM Age: 53 years old Clinical indication: Other: Afib rvr TECHNIQUE: Imaging protocol: Radiologic exam of the chest. Views: 1 view. COMPARISON: CR XR PORTABLE CHEST AP 03/26/2024 8:14 AM FINDINGS: Lungs: No gross focal pulmonary consolidation is seen. There is hazy indistinctness of the pulmonary vascular margins which can be seen with interstitial pulmonary edema. Pleural spaces: No pleural effusion or pneumothorax is demonstrated. Heart/Mediastinum: The heart is enlarged. Bones/joints: Surgical screws are partially visualized in the right humeral head. The visualized bony structures appear grossly intact. IMPRESSION: 1. Enlarged heart. 2. Hazy indistinctness of the pulmonary vascular margins. This appearance can be seen with interstitial pulmonary edema. Clinical correlation is recommended. No gross focal pulmonary consolidation is demonstrated. Labs 06/16/24 05:50 06/16/24 05:50 Labs: Laboratory Results - last 24 hr 06/15/24 06/15/24 06/15/24 19:58 20:46 22:45 WBC 9.44 RBC 5.44 Hgb 15.7 Hct 44.8 MCV 82 MCH 28.9 MCHC 35.0 RDW 12.7 Plt Count 207 MPV 11.0 Immature Gran % 0.3 Neutrophils % 51.3 Lymphocytes % 32.7 Monocytes % 11.9 Eosinophils % 2.8 Basophils % 1.0 Nucleated RBC % 0.0 Absolute Neutrophils 4.85 Absolute Lymphocytes 3.09 Absolute Monocytes 1.12 H Absolute Eosinophils 0.26 Absolute Basophils 0.09 Sodium 133 L Potassium 3.5 Chloride 101 Carbon Dioxide 21.0 Anion Gap 11.0 BUN 11 Creatinine 0.8 Est GFR (CKD-EPI 2020) 107.15 Glucose 155 H Calcium 9.6 Magnesium 1.9 Total Bilirubin 0.5 AST 23 ALT 49 Alkaline Phosphatase 127 H Troponin I 57 59 77 H* Total Protein 7.3 Albumin 4.1 TSH 2.68 Last Vital Signs Temp 36.9 C 06/15/24 19:46 Pulse 109 H 06/15/24 23:40 Resp 24 06/15/24 23:40 BP 103/66 06/15/24 23:31 Pulse Ox 96 06/15/24 23:40 Time Spent Time spent with Patient: >75 minutes Time was spent: preparing to see the patient(eg.review tests), obtaining and/or reviewing separately otained hiistory, ordering medications,tests, procedures, indepentently interpreting results, counseling the patient and care coordination
[2024-06-16] VITALS (77 sets, daily range): BP systolic 60–114; BP diastolic 33–81; PULSE 63–132; RESP 9–38; TEMP 36.1–37; O2SAT 93–99
[2024-06-16] MEDS: Apixaban 5 MG TAB PO ×3 (00:07→18:35)
--- NOTE | 2024-06-16 00:46 | NUR.NOTE ---
blood pressures remain labile. Dr. Alexander and Dionna Lemon TUBE SKIVER made aware. pt is to be admitted to Hospitalist service overnight with pending possible cardioversion in the morning.
--- NOTE | 2024-06-16 00:50 | ED.PROG_ITS ---
Date of service: 06/16/24 Time of Service: 00:50 Medical Decision Making 12:04 AM Patient was managed by Dionna. Dionna had completed workup and consults with Mary, however final conversation with Mary happened at 1159 at the end of her shift. Mary's recommendations are in the chart, and the recommendations from cardiology were to monitor the patient until the morning for complete metoprolol washout. If the patient is still in A-fib then he could potentially have electrocardioversion if needed. Otherwise recommendation would be for resumption of his regular daily metoprolol dosing. Heart rate has been oscillating between 95 and 100. Blood pressure is in the high 90s to low 100s. Mary did not recommend additional metoprolol secondary to the low blood pressure. Additional fluid boluses had been given secondary to his mild hypotension and fluid dependence from his hypertrophic cardiomyopathy. The decision to admit was made, however since it was the end of Dionna's shift, I agreed to contact the hospitalist on her behalf. I spoke with Dr. Priest, I discussed Mary's recommendations, the patient's troponin bump, vital sign status. There are no ICU beds at this time so the patient will be admitted as an ED hold for the ICU. I have extensively reviewed the treatment plan with the patient. I have addressed all patient concerns at this time. I have also discussed the plan with the admitting physician and they agree with the current assessment and plan and have agreed to assume responsibility for the patient. All parties demonstrate verbal understanding and agreement with our assessment and plan at this time. The documentation in this chart was dictated using [employer] dictation software. Please excuse any dictation errors. Quality:SDOH Health Related Social Needs: Health related social needs feeling lonely/isolated (Z 60.8) Discharge Plan Disposition Patient Disposition: Admit to [facility] Condition: Good Discharge Details Chief Complaint: Palpitatns Clinical Impression: NSTEMI (non-ST elevated myocardial infarction), Atrial fibrillation with RVR Primary Care Provider: JOSESITO OSUNA ED Provider: Dionna Gamboa Home Meds and New Rx's Prescriptions: No Action acetaminophen 325 mg capsule 325 mg PO ONCE PRN atorvastatin 40 mg Tablet 40 mg PO QHS lisinopril 20 mg Tablet 20 mg PO DAILY metoprolol succinate 25 mg tablet extended release 24 hr 25 mg PO DAILY Patient Comments: TAKE ONE TABLET BY MOUTH EVERY DAY Eliquis 5 mg tablet 5 mg PO BID
[2024-06-16] MEDS: Normal Saline 1,000 ML 125 ML IV (01:12)
[2024-06-16 01:25] LABS: COVID-19 PCR Negative (Negative); Influenza A PCR Negative (Negative); Influenza B PCR Negative (Negative); RSV PCR Negative (Negative)
[2024-06-16 01:29] LABS: Source Nasopharynx
[2024-06-16] MEDS: Atorvastatin 40 MG TAB PO (03:09)
[2024-06-16 03:37] LABS: TSH 3.51 uIU/mL (0.36-3.74)
[2024-06-16 03:41] LABS: Troponin I 230 ng/L (<or=76)
[2024-06-16 06:36] LABS: HCT 42.2 % (40.0-50.0); HGB 14.6 g/dL (13.5-17.5); MCHC 34.6 % (32.0-36.0); MCV 84 fL (80-95); MPV 10.8 fL (8.0-11.0); Platelet Count 181 10^3/uL (130-400); RBC 5.04 10^6/uL (4.36-5.78); RDW 12.9 % (11.8-14.1); RDW-SD 39.6 fL
[2024-06-16 07:02] LABS: Troponin I 342 ng/L (<or=76)
[2024-06-16 07:03] LABS: ALT 40 U/L (16-63); AST 22 U/L (15-37); Albumin 3.5 g/dL (3.4-5.0); Alkaline Phosphatase 78 U/L (46-116); Anion Gap 8.7 mmol/L (3-11); BUN 9 mg/dL (7-18); Bilirubin, Total 0.6 mg/dL (0.2-1.0); CO2 22.3 mmol/L (21.0-32.0); CREATININE 0.7 mg/dL (0.70-1.30); Calcium 8.8 mg/dL (8.5-10.1); Chloride 107 mmol/L (98-107); Estimated GFR 111.56 (mL/min/1.73m2); Glucose 91 mg/dL (74-106); Potassium 4.2 mmol/L (3.5-5.1); Sodium 138 mmol/L (136-145); Total Protein 6.3 g/dL (6.4-8.2)
[2024-06-16] MEDS: Metoprolol 25 MG TAB PO ×2 (08:27→18:35)
--- NOTE | 2024-06-16 08:43 | PDOC.CMIN ---
Date of service: 06/16/24 Time of Service: 08:43 Care Management Initial Assmt Initial Assessment Reason for Hospitalization: Afib with RVR Functional Status/Living Situation Patient Presentation: Santy was awake and lying in bed when CM met with him. He is being closely monitored in the ICU, [facility] cardiology is consulted for recommendations. Unfortunately, Cardiology is not here today and pt will need a cardioversion. Dr. Simental is considering reaching out to the ER M.D to see if they would be willing to do the procedure in Dr. Nichols absence. CM will follow. Town of Residence: [place] Resides with: Child (Daughter) and Spouse ( Clementine) Significant Other/Family: Local Employment Status: Employed ([employer]) Instrumental Activities of Daily Living (ADLs): Independent Medications Medication Management: No Issues/Barriers identified Advance Directives Advance Directives: Do you have an Advance Directive: Y 03/26/24 12:00 AD On File at [facility]: Y 03/26/24 12:00 Date Asked AD Date Reviewed 06/15/24 06/15/24 19:48 COLST On File at [facility] COLST Date Scanned Code Status Resuscitation Status Full Code Portal Pt does not currently have a portal and education provided: Yes Insurance Coverage/Financial Issues Insurance: BC/BS of [facility] BC/BS Out of State Care Team Visit Care Team Role Provider Type Benito Simental MD [facility] STAFF PHYSICIAN JOSESITO OSUNA Primary Care Provider [facility] STAFF PHYSICIAN Dionna Baker Emergency Provider NURSE PRACTITIONER Pierce Priest Admit Provider NON-[facility] STAFF PHYSICIAN Attending Provider Discharge Potential Discharge Needs: PCP F/U Appt Anticipated Barriers to Discharge: None Identified Patient/Family Education Needs: Review discharge instructions, discuss Ask Me Three Transportation: Private vehicle Plan: Santy is being medically managed in the ICU while he waits to have a cardioversion. [facility] Cardiology is consulted, Dr. Contreras is not here today. Anticipate, Santy will discharge home via private vehicle with family. Follow up with PCP and discharge plan of care as directed. No new services are anticipated at this time. Social Determinants of Health Screening Social Determinants of health last assessed in clinic: 06/16/24 Will the Patient Participate in the Screening?: Yes Do you worry about having a steady place to live?: no Problems where you live: no known problems In the past 12 months, have you had to go without electric, gas, oil or water in your home?: no 1. Within the past 12 months, we worried whether our food would run out before we got money to buy more.: Never true 2. Within the past 12 months, the food we bought just didn't last and we didn't have money to get more.: Never true Has lack of transportation kept you from medical appointments or from doing things needed for daily living?: no Has anyone in your life made you feel unsafe or unsupported?: no How hard is it for you to pay for the very basics like food, housing, medical care, and heating? Would you say it is:: Not hard at all Do you want help finding or keeping work or a job?: I do not need or want help If for any reason you need help with day-to-day activities such as bathing, preparing meals, shopping, managing finances, etc., do you get the help you need?: I don?t need any help How often do you feel lonely or isolated from those around you?: Never Do you speak a language other than [place] at home?: No Does the patient want assistance with any of the above?: No PFSH All Active Problems (Updated 06/16/24 @ 00:54 by Camron Alexander DO) Elevated troponin level not due to acute coronary syndrome (Acute) Atrial fibrillation with RVR (Acute) Hypertrophic cardiomyopathy (Chronic) NSTEMI (non-ST elevated myocardial infarction) (Acute) Otorrhea, right ear (Acute) Medical History Hypertension Hyperlipidemia Overweight Murmur, cardiac Vitamin D deficiency Unspecified fracture of sacrum, subsequent encounter for fracture with routine healing Burst fracture of cervical vertebra with routine healing 2-part nondisplaced fracture of surgical neck of right humerus, sequela Fatigue Neuropathy Hypertrophic nonobstructive cardiomyopathy Diverticulosis of sigmoid colon Perforation of right tympanic membrane Family History Mother Dementia Cancer Skin cancer (melanoma) Father Heart disease Brother TIA (transient ischemic attack) Paternal Grandfather Heart attack Paternal Grandmother Heart attack Social History Smoking/Tobacco Use Status: Former Tobacco Use Smoking risk assessment performed?: Yes Alcohol Intake: current Alcohol Intake frequency: a few times a month Alcohol type: hard liquor Drug use: Never Substance use type: does not use Housing: house Do you feel safe at home: Yes Do you feel safe in your relationship?: Yes Additional Social history: works from [employer] work
[2024-06-16] MEDS: Normal Saline Flush 10 ML SYR IVP (08:50)
--- NOTE | 2024-06-16 12:00 | RT.EKG_ITS ---
APPROVED REPORT Exam: Resting ECG Reason for Exam: increasing troponins Patient Location: I HR:101 bpm ECG Measurements Heart Rate 101 AXIS ME [id number] P [id number] QRSd 99 QRS -3 QT 386 T 158 QTc 501 Conclusion Atrial fibrillation...V-rate 81-100, irreg A-activity LVH with secondary repolarization abnormality...multi-LVH criteria, abnrm ST-T
--- NOTE | 2024-06-16 12:30 | PHA.REVIEW2 ---
Pharmacy Admission Review Admission Clinical Review Admission Pharmacy Review: Elevated troponin level not due to acute coronary syndrome (Acute) Atrial fibrillation with RVR (Acute) No Known Allergies Allergy (Verified 06/15/24 19:48) Resuscitation Status Full Code Height 5 ft 4 in Weight 90.2 kg Pharmacy Admission Review Renal Dosing Renal Dosing: BUN 9 mg/dL (7-18) 06/16/24 05:50 Creatinine 0.7 mg/dL (0.70-1.30) 06/16/24 05:50 Medications needing adjustments: Reviewed (no adjustment needed) Anticoagulation Anticoagulation: Hgb 14.6 g/dL (13.5-17.5) 06/16/24 05:50 Hct 42.2 % (40.0-50.0) 06/16/24 05:50 Plt Count 181 10^3/uL (130-400) 06/16/24 05:50 Creatinine 0.7 mg/dL (0.70-1.30) 06/16/24 05:50 Medications: Apixaban Opiate Usage Evaluate Pain Scale/Pains Meds: N/A (no pain meds needed) Relevant Labs Relevant Labs: Sodium 138 mmol/L (136-145) 06/16/24 05:50 Potassium 4.2 mmol/L (3.5-5.1) 06/16/24 05:50 Chloride 107 mmol/L (98-107) 06/16/24 05:50 Magnesium 1.9 mg/dL (1.8-2.4) 06/15/24 19:58 Electrolytes, C-Reactive P, ESR: Reviewed DM Control DM Control: Reviewed (glucose within normal limits) Cardiac Review Cardiac Review: Troponin I Cancelled 06/16/24 06:00 BP, HR, EF%: Reviewed (troponins trending up. BP low, and HR elevated. On home metoprolol. ) QTc Review QTc: Reviewed Home Meds Home Med List reviewed: Reviewed Current Meds Current Medication Order Review: Reviewed Pharmacy Antibiotic Review Comments: No antibiotics or cultures to review.
--- NOTE | 2024-06-16 12:45 | RT.EKG_ITS ---
APPROVED REPORT Exam: Resting ECG Reason for Exam: tele change Patient Location: I HR:68 bpm ECG Measurements Heart Rate 68 AXIS CA 182 P 39 QRSd 104 QRS -1 QT 434 T 156 QTc 462 Conclusion Sinus rhythm...normal P axis, V-rate 50- 99 Left atrial enlargement...P, P'>60mS, <-0.15mV V1 LVH with secondary repolarization abnormality...multi-LVH criteria, abnrm ST-T Minimal ST elevation, inferior leads...ST >0.06mV, II III aVF
[2024-06-16 13:02] LABS: Troponin I 441 ng/L (<or=76)
[2024-06-16 17:55] LABS: Troponin I 354 ng/L (<or=76)
--- NOTE | 2024-06-16 18:12 | DSE_ITS ---
Date of service: 06/16/24 Time of Service: 18:12 DS: Diagnosis Discharge Diagnosis (1) Atrial fibrillation with RVR: Status: Acute (2) Elevated troponin level not due to acute coronary syndrome: Status: Acute (3) Hypertrophic cardiomyopathy: Status: Chronic (4) Hypertension: (5) Hyperlipidemia: Discharge Plan Disposition Patient Disposition: Home Condition: Stable Discharge Details Reason For Visit: PAF with RVR, Elevated troponin Admit Date/Time: 06/16/24 00:32 Admit Provider: Pierce Priest Attending Provider: Pierce Priest Primary Care Provider: JOSESITO OSUNA Hospital Course Hospital Course: 53 yo M with history of paroxysmal atrial fibrillation on apixaban and hypertrophic cardiomyopathy who presented with chest pressure and racing heart and was found to be in atrial fibrillation with RVR. His troponins were elevated and his EKG showed some ST abnormalities that were stable from previous EKGs and felt associated with his HCM. He was given 5mg IV metoprolol which did slow his heart to 90s-100s and resumed oral metoprolol at 25mg BID tartrate (was recently increased to 50mg succinate). Case was reviewed with cardiology Dr. Hanna at . He was observed and did not have more chest pressure but his troponins trended up. His rate remained around 100 at rest but jumped to around 150 with activity. BP was low normal in 90s/60s. Troponin was as high as 441 without new EKG changes or chest pain/pressure. Case was again reviewed with cardiology Jax Jones who agreed with cardioversion, but the patient converted while we were prepping for this to sinus rhythm. He felt well after converting back to sinus. Repeat troponin 4.5 hours later showed a decrease troponin to 354. He was dicharged to follow up with Cardiology at [facility]. He will need to reschedule his planned ablation with the EP team. Follow up PCP: coordinate follow up plan with cardiology Follow blood pressure Home Meds and New Rx's Prescriptions: New metoprolol succinate 50 mg tablet extended release 24 hr 50 mg PO DAILY Qty: 90 0RF Continued atorvastatin 40 mg Tablet 40 mg PO QHS lisinopril 20 mg Tablet 20 mg PO DAILY Eliquis 5 mg tablet 5 mg PO BID Changed acetaminophen 325 mg capsule 325 mg PO Q4H PRNQty: 100 0RF Discontinued metoprolol succinate 25 mg tablet extended release 24 hr 25 mg PO DAILY Patient Comments: TAKE ONE TABLET BY MOUTH EVERY DAY Discharge Instructions Instructions: Atrial Fibrillation (DC) Additional Instructions: Continue the 50mg of metoprolol XL (succinate). you can start back on lisinopril 06/17 Call [facility] to reschedule the ablation. They are aware of what happened here. Activity:: Activity as Tolerated Equipment/Supplies:: No Equipment Needed Diet:: As Tolerated Discharge Orders Discharge Orders: Discharge Order (Routine); Ordered 06/16/24 Ordered By: Benito Siemntal DS: Summary Time Spent with Patient providing and/or coordinating discharge services: Greater than 30 minutes Status at Discharge Functional status at discharge: independent ambulation Overall status at discharge: patient is back to baseline Mental Status: mental status grossly normal Speech and Movement: speech and movement normal Mood: congruent mood Affect: normal affect Quality:SDOH Health Related Social Needs: Health related social needs feeling lonely/isolated (Z 60.8) Exam Narrative Exam Narrative: General: Patient appears appropriate for age, alert and oriented x 3 and in no acute distress. Lungs: Clear to auscultation percussion with no focalizing rales or rhonchi. Normal vesicular breath sounds. Heart: Irregularly irregular rhythm with tachycardic rate, then regular, 3/6 pansystolic murmur left sternal border and apex. No gallop or rubs. Abdomen: soft, NT/ND Extremities: No clubbing, cyanosis or pitting edema. Peripheral pulses intact. Psych Mental Status: mental status grossly normal Speech and Movement: speech and movement normal Mood: congruent mood Affect: normal affect DS: Data Vitals/I&O Vitals and I&O: Vital Signs Temperature 37.0 C 06/16/24 14:19 Temperature Source Temporal Artery Scan 06/16/24 14:19 Pulse 81 06/16/24 17:00 Pulse 80 06/16/24 17:00 Respiratory Rate 20 06/16/24 17:00 Respiratory Effort Normal 06/16/24 02:09 Respiratory Depth Normal 06/16/24 02:09 Respiratory Pattern Normal 06/16/24 02:09 Blood Pressure 114/69 06/16/24 14:17 Blood Pressure Mean 81 06/16/24 14:17 Blood Pressure Position Supine 06/16/24 02:09 Pulse Oximetry 96 06/16/24 17:00 Oxygen Delivery Method Room Air 06/16/24 02:09 Oxygen Flow Rate 0 06/16/24 02:09 Pain Level 0 06/16/24 15:39 Intake & Output 06/15/24 06/16/24 06/16/24 23:59 11:59 23:59 Intake Total 1999 1010 / 1875 865 / 1875 Output Total 3450 / 3450 Balance 1999 -2440 / -1575 865 / -1575 Weight 94.3 kg 90.2 kg Intake: IV 1999 1010 / 1050 40 / 1050 Oral 825 / 825 Output: Urine 3450 / 3450 Other: Urine Color Yellow Urine Appearance Clear Urine Odor None # Voids 3 Data Completed and Pending Labs on day of discharge: Labs from last 24 hours 06/16/24 17:14: Troponin I 354 H* 06/16/24 12:27: Troponin I 441 H* 06/16/24 06:00: Troponin I Cancelled 06/16/24 05:50: WBC 10.30, RBC 5.04, Hgb 14.6, Hct 42.2, MCV 84, MCH 29.0, MCHC 34.6, RDW 12.9, Plt Count 181, MPV 10.8, Sodium 138, Potassium 4.2, Chloride 107, Carbon Dioxide 22.3, Anion Gap 8.7, BUN 9, Creatinine 0.7, Est GFR (CKD-EPI 2020) 111.56, Glucose 91, Calcium 8.8, Total Bilirubin 0.6, AST 22, ALT 40, Alkaline Phosphatase 78, Troponin I 342 H*, Total Protein 6.3 L, Albumin 3.5 06/16/24 03:00: Troponin I 230 H*, TSH 3.51 06/16/24 00:43: COVID-19 Source Nasopharynx, SARS-CoV-2 (PCR) Negative, Influenza Type A (PCR) Negative, Influenza Type B (PCR) Negative, RSV (PCR) Negative 06/15/24 22:45: Troponin I 77 H* 06/15/24 20:46: Troponin I 59 06/15/24 19:58: WBC 9.44, RBC 5.44, Hgb 15.7, Hct 44.8, MCV 82, MCH 28.9, MCHC 35.0, RDW 12.7, Plt Count 207, MPV 11.0, Immature Gran % 0.3, Neutrophils % 51.3, Lymphocytes % 32.7, Monocytes % 11.9, Eosinophils % 2.8, Basophils % 1.0, Nucleated RBC % 0.0, Absolute Neutrophils 4.85, Absolute Lymphocytes 3.09, Absolute Monocytes 1.12 H, Absolute Eosinophils 0.26, Absolute Basophils 0.09, Sodium 133 L, Potassium 3.5, Chloride 101, Carbon Dioxide 21.0, Anion Gap 11.0, BUN 11, Creatinine 0.8, Est GFR (CKD-EPI 2020) 107.15, Glucose 155 H, Calcium 9.6, Magnesium 1.9, Total Bilirubin 0.5, AST 23, ALT 49, Alkaline Phosphatase 127 H, Troponin I 57, Total Protein 7.3, Albumin 4.1, TSH 2.68 PFSH All Active Problems (Updated 06/16/24 @ 00:54 by Camron Alexander DO) Elevated troponin level not due to acute coronary syndrome (Acute) Atrial fibrillation with RVR (Acute) Hypertrophic cardiomyopathy (Chronic) NSTEMI (non-ST elevated myocardial infarction) (Acute) Otorrhea, right ear (Acute) Medical History Hypertension Hyperlipidemia Overweight Murmur, cardiac Vitamin D deficiency Unspecified fracture of sacrum, subsequent encounter for fracture with routine healing Burst fracture of cervical vertebra with routine healing 2-part nondisplaced fracture of surgical neck of right humerus, sequela Fatigue Neuropathy Hypertrophic nonobstructive cardiomyopathy Diverticulosis of sigmoid colon Perforation of right tympanic membrane Family History Mother Dementia Cancer Skin cancer (melanoma) Father Heart disease Brother TIA (transient ischemic attack) Paternal Grandfather Heart attack Paternal Grandmother Heart attack Social History Smoking/Tobacco Use Status: Former Tobacco Use Smoking risk assessment performed?: Yes Alcohol Intake: current Alcohol Intake frequency: a few times a month Alcohol type: hard liquor Drug use: Never Substance use type: does not use Housing: house Do you feel safe at home: Yes Do you feel safe in your relationship?: Yes 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
== END 2024-06-16 19:00 | disposition home or self-care (01) | DRG 310 ==
LOC: ER 06-16 01:37 → ICU 06-16 02:33
PROVIDERS: Admitting Provider Family Medicine; Emergency Provider Nurse Practitioner Family; PCP Nurse Practitioner Primary Care; Responsible Provider Family Medicine; Visit Provider Family Medicine
DX: I48.0 Paroxysmal atrial fibrillation (principal); I42.2 Other hypertrophic cardiomyopathy; R74.8 Abnormal levels of other serum enzymes; I10 Essential (primary) hypertension; E78.5 Hyperlipidemia, unspecified; I25.2 Old myocardial infarction; Z79.01 Long term (current) use of anticoagulants; G62.9 Polyneuropathy, unspecified; Z79.899 Other long term (current) drug therapy; E66.3 Overweight; Z68.34 Body mass index [BMI] 34.0-34.9, adult; R01.1 Cardiac murmur, unspecified; K57.30 Diverticulosis of large intestine without perforation or abscess without bleeding; E55.9 Vitamin D deficiency, unspecified; Z87.891 Personal history of nicotine dependence
CPT/HCPCS: 00123; 36415; 80053; 85027; 87637; 93005; 93308; 96361; 96374; 99291; 71045; 83735; 84443; 84484; 85025; 93010; 99236

== ENCOUNTER 2024-06-27 13:19 | Emergency (ER) | payer BC, SELFPAY ==
[2024-06-27] VITALS (13 sets, daily range): BP systolic 109–112; BP diastolic 57–67; PULSE 65–76; RESP 12–21; TEMP 36.4; O2SAT 97–99
--- NOTE | 2024-06-27 13:15 | RT.EKG_ITS ---
APPROVED REPORT Exam: Resting ECG Reason for Exam: Hx cardiomyopathy, afib Patient Location: E HR:70 bpm ECG Measurements Heart Rate 70 AXIS [place] 137 P 63 QRSd 139 QRS 44 QT 425 T 170 QTc 457 Conclusion Sinus rhythm...normal P axis, V-rate 60- 99 IVCD, consider LBBB...QRSd>120, notch/slur R I aVL V5-6
--- NOTE | 2024-06-27 14:00 | W.ED.GENAD ---
Discharge Plan Disposition Patient Disposition: Against Medical Advice Discharge Details Clinical Impression: Syncope Primary Care Provider: JOSESITO OSUNA ED Provider: Benito Osorio Home Meds and New Rx's Prescriptions: Continued atorvastatin 40 mg Tablet 40 mg PO QHS lisinopril 20 mg Tablet 20 mg PO DAILY Eliquis 5 mg tablet 5 mg PO BID metoprolol succinate 50 mg tablet extended release 24 hr 50 mg PO DAILY Qty: 90 0RF acetaminophen 325 mg capsule 325 mg PO Q4H PRNQty: 100 0RF Discharge Instructions Additional Instructions: You were seen in the emergency department for your syncope. You are quite high risk for syncope given your history of hypertrophic cardiomyopathy. It was recommended that you undergo a number of blood tests, a chest x-ray, and consultation with cardiology at [facility]. You declined. You elected to leave AGAINST MEDICAL ADVICE. We discussed that there is a risk of recurrent syncope, dysrhythmia, heart attack, and . He understood this risk. Please return to the emergency department if your symptoms recur if you pass out or if you have any other concerns. Otherwise please follow-up with your primary care provider next week. HPI General Date/Time Provider Initiated Documentation: 06/27/24 13:30. HPI Narrative: MDM Broad differential of syncope in this well-appearing normothermic and not tachycardic 53-year-old male with nonobstructive hypertrophic cardiomyopathy and hyperlipidemia. Will obtain biomarkers to assess for myocardial injury. He is neurologically intact so I am not suspicious for CVA. He is having no chest pain to suggest PE however given history of atrial fibrillation we will obtain a D-dimer to risk stratify. No chest pain to suggest aortic dissection. He is not hypotensive and not having any black or bloody stools to suggest acute GI bleed so I did not perform a rectal exam. Will obtain a CBC. He has a preserved EF on bedside echo similar to prior echocardiogram from earlier this month so I am not concern for acute heart failure. Furthermore he has no B-lines or nor lower extremity swelling and denies shortness of breath. His history of hypertrophic cardiomyopathy which is certainly concerning for the possibility of syncope though his symptoms seem to be precipitated by his attempted vagal maneuver. He has no history of aortic stenosis to suggest a assess cause. He is also at risk for dysrhythmia so we will observe on telemetry. My suspicion is low for seizure given no loss of bowel or bladder control. 2:15 PM I met with the patient. He was in a normal sinus rhythm on telemetry. We discussed my plan for his evaluation in the emergency department. He reported that he felt improved and that he wanted to be discharged. I advised him that I was planning on calling cardiology at [facility] following multiple troponins a D-dimer and chest x-ray as his hypertrophic cardiomyopathy made him high risk for syncope. He understood this evaluation and indications but he requested to leave AGAINST MEDICAL ADVICE. I explained to him that there is risks of myocardial infarction, recurrent syncope dysrhythmia and . I advised him to return if he changes mind or if he had any other symptoms. After the patient signed out AMA I canceled his lab work. 1. I explained the current situation and condition to the patient. 2. I explained the recommended treatment for this condition ?telemetry monitoring in the emergency department with cardiac biomarker assessment, chest x-ray, restratification for pulmonary embolism, and cardiology consultation. 3. I explained the risk of not having the recommended treatment ?syncope with collapse dysrhythmia myocardial infarction permanent disability. 4. The patient understands this information has no questions, and repeated back this information. 5. The patient states that they need to leave and will follow-up with her cardiology team at [facility]. 6. Mental status is lucid and the patient has decision-making capacity. 7. Patient is withdrawn consent for care Chronic conditions affecting the care of the patient: HCM, HLD, History obtained from an outside historian: N/A External record review: [facility] Diagnostic interpretations performed by me: Per my independent interpretation EKG shows: Sinus rhythm at a rate of 70 with interventricular conduction delay. Normal axis. Slightly more pronounced left lateral chest related T wave inversions compared to prior. No ST segment elevations. HPI The patient presents to the emergency department for evaluation of syncope. He experienced a syncopal episode today while working on spreadsheets, which he attributes to an attempt to alleviate his atrial fibrillation symptoms using a technique involving deep breathing and nasal occlusion. This technique was previously suggested by a nurse during his last visit. He did not experience any fall or head injury during the syncopal episode. He also reports no tongue biting or loss of bowel or bladder control. He reports intermittent lightheadedness and near-syncope since the episode. He did not experience any A-fib symptoms upon awakening this morning but felt them for a few hours prior to the syncopal episode. He is currently on apixaban twice daily and reports no calf pain, chest pain, or respiratory distress. He occasionally experiences hand numbness, which he considers normal. He has not had any recent episodes of vomiting, fever, or respiratory distress. He also reports no melena or hematochezia. He has a history of A-fib, with a recent hospitalization where he spontaneously converted back to normal rhythm after getting up to urinate. He has a scheduled open-heart surgery later this year and had a consultation yesterday regarding a potential ablation procedure. Exam General: Well-appearing in no acute distress speaking in complete sentences. Head: Normocephalic, atraumatic. Eye: Extraocular eye movements intact. No conjunctival injection. No scleral icterus. Ear, nose, mouth, throat: Grossly normal inspection. Normal voice, handling secretions normally. Neck: Trachea midline. Cardiovascular: Well-perfused distal extremities. Systolic ejection murmur 4 out of 6 left sternal border. Respiratory: Nonlabored respiration. Clear lungs bilaterally. Gastrointestinal: Nondistended abdomen. Musculoskeletal: No significant lower extremity pitting edema. Moving all 4 extremities spontaneously. Skin: Normal for age and race, grossly normal temperature and turgor. No acute rash. Neurologic: Alert and appropriate, no apparent acute deficits. GCS 15. Psychiatric: Mood and manner are appropriate. Grooming and personal hygiene are appropriate. Related Data Home Medications ?Medication ?Instructions ?Recorded ?Confirmed atorvastatin 40 mg tablet 40 mg PO QHS 12/15/19 06/27/24 lisinopril 20 mg tablet 20 mg PO DAILY 12/15/19 06/27/24 apixaban 5 mg tablet (Eliquis) 5 mg PO BID 06/15/24 06/27/24 acetaminophen 325 mg capsule 325 mg PO Q4H PRN #100 caps 06/16/24 06/27/24 metoprolol succinate 50 mg 50 mg PO DAILY #90 tabs 06/16/24 06/27/24 tablet,extended release 24 hr Previous Rx's ?Medication ?Instructions ?Recorded acetaminophen 325 mg capsule 325 mg PO Q4H PRN #100 caps 06/16/24 metoprolol succinate 50 mg 50 mg PO DAILY #90 tabs 06/16/24 tablet,extended release 24 hr Allergies Allergy/AdvReac Type Severity Reaction Status Date / Time No Known Allergies Allergy Verified 06/27/24 13:31 General Stated Complaint: Palpitatns PRITESH: 3 Course Vital Signs Vital signs: Vital Signs Temperature 36.4 C 06/27/24 13:22 Pulse 76 06/27/24 13:22 Respiratory Rate 16 06/27/24 13:22 Blood Pressure 110/67 06/27/24 13:22 Pulse Oximetry 97 06/27/24 13:22 Temperature 36.4 C 06/27/24 13:22 Temperature Source Oral 06/27/24 13:22 Pulse 76 06/27/24 13:22 Respiratory Rate 16 06/27/24 13:22 Blood Pressure 110/67 06/27/24 13:22 Blood Pressure Position Sitting 06/27/24 13:22 Pulse Oximetry 97 06/27/24 13:22 Oxygen Delivery Method Room Air 06/27/24 13:22 Oxygen Flow Rate 0 06/27/24 13:22 Pain Level 0 06/27/24 13:22 Medical Decision Making Quality:SDOH Health Related Social Needs: Health related social needs feeling lonely/isolated (Z60.8) PFSH All Active Problems (Updated 06/27/24 @ 14:42 by Benito Osorio MD) Syncope (Chronic) Hypertrophic cardiomyopathy (Chronic) NSTEMI (non-ST elevated myocardial infarction) (Acute) Otorrhea, right ear (Acute) Medical History Hypertension Hyperlipidemia Overweight Murmur, cardiac Vitamin D deficiency Unspecified fracture of sacrum, subsequent encounter for fracture with routine healing Burst fracture of cervical vertebra with routine healing 2-part nondisplaced fracture of surgical neck of right humerus, sequela Fatigue Neuropathy Hypertrophic nonobstructive cardiomyopathy Diverticulosis of sigmoid colon Perforation of right tympanic membrane Family History Mother Dementia Cancer Skin cancer (melanoma) Father Heart disease Brother TIA (transient ischemic attack) Paternal Grandfather Heart attack Paternal Grandmother Heart attack Social History Smoking/Tobacco Use Status: Former Tobacco Use Smoking risk assessment performed?: Yes Alcohol Intake: current Alcohol Intake frequency: a few times a month Alcohol type: hard liquor Drug use: Never Substance use type: does not use Housing: house Do you feel safe at home: Yes Do you feel safe in your relationship?: Yes 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 Exam complete
== END 2024-06-27 15:01 | disposition left against medical advice (07) ==
PROVIDERS: Emergency Provider Emergency Medicine; PCP Nurse Practitioner Primary Care
DX: R55 Syncope and collapse (principal); Z53.29 Procedure and treatment not carried out because of patient's decision for other reasons; Z60.8 Other problems related to social environment
CPT/HCPCS: 99283; 99284; 80053; 93005; 93308; 83735; 84484; 85025; 85379; 93010